=== PATIENT | female | born 1935 | race Caucasian/White ===

== ENCOUNTER 2017-02-04 23:32 | Inpatient (IN) | payer MEDICARE, OTHER ==
[~2017-02-04] VITALS: Ht 165.1 cm; Wt 90.6 kg
[~2017-02-04 23:32] MED LIST: B COTAB3 PO; CETI10 PO; FISHCAP; FLON0.053; LEXA20TA PO; MONT10TA2 PO; MULT1TAB46 PO; PRAV40TA2 PO; RAMI2.5C29 PO; SYNT125T PO; TRIA0.02 TOP
[2017-02-04 23:36] VITALS: BP 160/70; PULSE 80; RESP 18; TEMP 98.2; O2SAT 100
[2017-02-05] VITALS (14 sets, daily range): BP systolic 141–170; BP diastolic 62–86; PULSE 70–90; RESP 20–32; TEMP 98.2–99.3; O2SAT 93–100
--- NOTE | 2017-02-05 00:41 | PD ---
HPI Chief Complaint: Back/ Neck Pain or Injury Time Seen by Provider: 23:39 Travel History International Travel<30 days: No Contact w/Intl Traveler<30days: No Traveled to known affect area: No History of Present Illness HPI The patient is an 82 year old female who presents to the [facility] emergency department with a history of reportedly tripped and in falling at home earlier in the day. The patient reports that she hit her head on a metal cabinet. The patient was brought in to [facility] emergency department and underwent a workup. The patient was noted on imaging to have nasal bone fractures and a C3 fracture. That facility had no neurosurgeon on-call, therefore they called this facility and were accepted in transfer by the neurosurgeon on-call, Dr. Bernard. The patient on arrival is confused. From reviewing the record she does have a history of dementia. She is oriented to person and situation, however not time or place. The patient believes that she is in [place]. The patient denies having any numbness or tingling to her arms or legs. She denies having any weakness of her arms or legs. She denies having any other extremity pain currently, however she was having some pain along the right anterior knee which was imaged prior to arrival and showed no acute bony abnormality. The patient denies any recent fevers, cough, congestion , chest pain, shortness of breath, abdominal pain, vomiting, diarrhea, urinary symptoms, or other neurologic symptoms. [facility] Past Medical History Narrative Medical The patient's past medical history is significant for allergic rhinitis, arthritis, history of breast cancer, history of diabetes mellitus, history of hyperlipidemia, hypertension, dementia, hypothyroid disorder. Depression: Yes High Cholesterol: Yes Diabetes: No Hypertension: Yes Immunizations Current: No Thyroid Disease: Yes Tetanus Vaccination: Unknown Influenza Vaccination: No ?: Not Tubal Ligation: Yes Past Surgical History Narrative Surgical The patient's past surgical history is significant for arthroscopy of the knee, carpal tunnel release, cervical spine fusion, discectomy, bilateral knee replacement, splenectomy, partial thyroidectomy Abdominal Surgery: Yes (SPLEEN REMOVED) Neurologic Surgery: Yes (BACK DISC) Other Surgery: Yes (CALCIUM NODES OFF THYROID, LUMPECTOMY LEFT BREAST) Social History Alcohol Use: No Tobacco Use: No Substance Use: No Allergies-Medications (Allergen,Severity, Reaction): Coded Allergies: No Known Allergies (Unverified , 02/04/17) Reported Meds & Prescriptions Reported Meds & Active Scripts Active Reported Fish Oil ([place]-3 Fatty Acids) Cap B Complex (Vitamin B Complex) Tab 1 Cap PO DAILY Multi Vitamin Daily (Multiple Vitamin) 1 Tab Tab PO Flonase (Fluticasone Propionate) 0.05 % Naspr 2 Spr NA DAILY 2 SPRAYS EACH NOSTRIL Singulair (Montelukast Sodium) 10 Mg Tab 10 Mg PO HS Pravastatin Sodium 40 Mg Tab 1 Tab PO DAILY Ramipril 2.5 mg (Ramipril) 2.5 Mg Cap 2.5 Mg PO DAILY Lexapro (Escitalopram Oxalate) 20 Mg Tab 20 Mg PO DAILY Synthroid 125 mcg (Levothyroxine Sodium) 125 Mcg Tab 1 Tab PO DAILY Zyrtec 10 Mg Tab (Cetirizine HCl) 10 Mg Tab 10 Mg PO DAILY Review of Systems Except as stated in HPI: all other systems reviewed are Neg General / Constitutional: No: Fever Eyes: No: Visual changes HENT: Positive: Headaches, Nosebleed, Neck Stiffness, Neck Pain Cardiovascular: No: Chest Pain or Discomfort Respiratory: No: Shortness of Breath Gastrointestinal: No: Nausea, Vomiting, Diarrhea, Abdominal Pain Genitourinary: No: Dysuria Musculoskeletal: No: Pain Skin: No Rash Neurologic: Positive: Headache, No: Weakness, Focal Abnormalities, Change in Mentation, Slurred Speech, Sensory Disturbance Psychiatric: No: Depression Endocrine: No: Polydipsia Hematologic/Lymphatic: No: Easy Bruising Physical Exam Narrative General: The patient is a well-developed well-nourished female in no acute distress. The patient is brought in with a [place] collar in place. Head and Neck exam: Head is normocephalic atraumatic. The patient has tenderness on palpation of her nasal bridge associated with swelling and developing ecchymosis. There is no increased facial bone ability on palpation. No other crepitus or tenderness on palpation of her face. Eyes: EOMI, pupils are equal round and reactive to light. Nose: Midline septum with pink mucous membranes Mouth: Dentition unremarkable. Moist mucus membranes. Posterior oropharynx is not erythematous. No tonsillar hypertrophy. Uvula midline. Airway patent. Neck: The patient is immobilized in a cervical collar. No tracheal deviation. The trachea appears midline. Cardiovascular: Regular rate and rhythm without murmurs, gallops, or rubs. Lungs: Clear to auscultation bilaterally. No wheezes, rhonchi, or rales. No chest wall tenderness to palpation. No erythema or ecchymosis noted. No crepitus , step off, or flail segment noted. Abdomen: Soft, without tenderness to palpation in all 4 quadrants of the abdomen. No guarding, rebound, or rigidity. Normal bowel sounds are audible. Extremities: No clubbing, cyanosis, or edema. 2+ pulses in all 4 extremities. No extremity tenderness or deformity noted on palpation or passive/ active range of motion. The patient has anterior right knee ecchymosis developing, however no loss of range of motion or tenderness with palpation. Neurologic Exam: Cranial nerves 2-12 were intact on exam. Strength is 5/5 in all 4 extremities. No sensory deficits noted. Skin Exam: No rash noted. Data Data Last Documented VS Vital Signs Date Time Temp Pulse Resp B/P Pulse Ox O2 Delivery O2 Flow Rate FiO2 02/05/17 00:14 81 20 158/68 96 Room Air 02/04/17 23:36 98.2 Orders Iv Access Insert/Monitor (02/05/17 00:25) Oximetry (02/05/17 00:25) Ecg Monitoring (02/05/17 00:25) Urinary Catheter Insert/Apply (02/05/17 00:30) Apply Cervical Collar (02/05/17 00:30) Admit Order (Ed Use Only) (02/05/17 00:31) Consult Neurosurgery (02/05/17 ) MDM Medical Decision Making Medical Screen Exam Complete: Yes Emergency Medical Condition: Yes Medical Record Reviewed: Yes Differential Diagnosis Cervical spine fracture, versus cord contusion, versus subluxation Narrative Course During the course of the patients emergency department visit, the patients history, examination, and differential diagnosis were reviewed with the patient. The patient had IV access obtained and blood work sent for analysis. The patient was placed on a data modeling specialist with oximetry and blood pressure monitoring. The trauma surgeon on-call was notified regarding this patient's case. He did agree to admit the patient for further evaluation and treatment at this time. I additionally notified Dr. Bernard, the neurosurgeon regarding this patient's arrival in the emergency department. I asked him if he wanted an urgent MRI done this evening, however he reports that this is not necessary. He recommended that the patient be maintained in a collar and admitted to the [facility]. The patient reports the need to urinate. The patient does not have a catheter in place. As the patient will not be able to be up and mobile at this point, the patient will have a [place] catheter placed to gravity. The patients laboratory studies were reviewed from the other facility and are remarkable for a white count of 14.2, hemoglobin 11.1, platelets 293 with 81 neutrophils, lymphocytes 9.2, PT 12.9, INR 1.0, PTT 29.0. Basic metabolic profile is remarkable for sodium of 138, potassium 4.7, chloride 99, CO2 22, glucose 176, BUN 24, creatinine 1.24, magnesium 1.6, CPK 154, troponin T less than 0.01. Radiology studies were reviewed from the other facility and remarkable for a chest x-ray that shows no acute abnormality. CT scan of the facial bones shows a nondisplaced bilateral nasal bone fracture, soft tissue contusion and laceration involving the upper lip. CT scan of the C-spine shows a nondisplaced obliquely oriented fracture through the anterior aspect of the C3 vertebral body, multilevel degenerative osteochondrosis facet arthropathy of the cervical spine without evidence of high-grade central canal or neural foraminal stenosis. CT scan of the thorax shows no acute abnormality. The patients results were discussed with the patient, including the plan of care. I explained that further testing and/ or monitoring is indicated based on the patients history, examination, and/ or laboratory findings. Therefore, I recommended admission for additional evaluation. The patient expressed understanding and was agreeable with this plan. The patient was admitted to the hospital in guarded condition and sent to a bed under the care of the trauma service with a consultation to Dr. Bernard of the neurosurgeon. Diagnosis Primary Impression: Fall Qualified Code: W19.XXXA - Fall, initial encounter Additional Impressions: Closed C3 fracture Qualified Code: S12.201A - Closed nondisplaced fracture of third cervical vertebra, unspecified fracture morphology, initial encounter Nasal bone fracture Qualified Code: S02.2XXA - Closed fracture of nasal bone, initial encounter Admitting Information Admitting Physician Requests: Admit Jennifer Cook MD February 05, 2017 00:41
--- NOTE | 2017-02-05 00:43 | HHI.HP ---
General Surgery H&P H&P [facility] [id number] Scott Cash MD February 05, 2017 00:43
[2017-02-05] MEDS ORDERED: SODIUM CHLORIDE 0.9% FLUSH 10 ML FLUSH IV FLUSH PRN (00:45)
[2017-02-05] MEDS ORDERED: HYDROmorphone HCL PF 1 MG/ML VIAL IVP PRN (00:45)
[2017-02-05] MEDS ORDERED: ONDANSETRON HCL 4 MG/2 ML VIAL IV PRN (00:45)
[2017-02-05] MEDS ORDERED: ACETAMINOPHEN 325 MG TAB PO PRN (00:45)
[2017-02-05] MEDS ORDERED: CHLORHEXIDINE GLUCONATE 2 % 1 PACK (2 CLOTHS) TOP PRN (00:45)
[2017-02-05] MEDS ORDERED: PANTOPRAZOLE SODIUM 40 MG VIAL IVP SCH (00:45)
[2017-02-05] MEDS ORDERED: MAGNESIUM HYDROXIDE SUSP 30 ML CUP PO PRN (00:45)
[2017-02-05] MEDS ORDERED: ENALAPRILAT 1.25 MG/ML VIAL IV PRN (00:45)
[2017-02-05] MEDS ORDERED: MISCELLANEOUS NURSING INFORMATION XX SCH (00:45)
[2017-02-05] MEDS: SODIUM CHLOR 0.9% 1000 ML INJ 1,000 ML IV SCH ×2 (02:21→14:51)
--- NOTE | 2017-02-05 02:25 | PD.CONS ---
[facility] Service Critical Care Medicine Consult Requested By Primary Care Physician Unknown History of Present Illness 82 year old female presents to the [facility] emergency department with a history of reportedly tripped and in falling at home earlier in the day. The patient reports that she hit her head on a metal cabinet. She was brought in to [facility] emergency department and underwent a workup. She was noted on a CAT scan imaging to have nasal bone fractures and a C3 nondisplaced fracture. She was transferred here for a high level of care. Review of Systems Constitutional: DENIES: Diaphoretic episodes, Fatigue, Fever, Weight gain, Weight loss, Chills, Dizziness, Change in appetite, Night Sweats Endocrine: DENIES: Abnorml menstrual pattern, Heat/cold intolerance, Polydipsia , Polyuria, Polyphagia Eyes: DENIES: Blurred vision, Diplopia, Eye inflammation, Eye pain, Vision loss , Photosensitivity, Double Vision Ears, nose, mouth, throat: DENIES: Tinnitus, Hearing loss, Vertigo, Nasal discharge, Oral lesions, Throat pain, Hoarseness, Ear Pain, Running Nose, Epistaxis, Sinus Pain, Toothache, Odynophagia Respiratory: DENIES: Apneas, Cough, Snoring, Wheezing, Hemoptysis, Sputum production, Shortness of breath Cardiovascular: DENIES: Chest pain, Palpitations, Syncope, Dyspnea on Exertion , PND, Lower Extremity Edema, Orthopnea, Claudication Gastrointestinal: DENIES: Abdominal pain, Black stools, Bloody stools, Constipation, Diarrhea, Nausea, Vomiting, Difficulty Swallowing, Anorexia Genitourinary: DENIES: Abnormal vaginal bleeding, Dysmenorrhea, Dyspareunia, Sexual dysfunction, Urinary frequency, Urinary incontinence, Urgency, Hematuria , Dysuria, Nocturia, Vaginal discharge Musculoskeletal: DENIES: Joint pain, Muscle aches, Stiffness, Joint Swelling, Back pain, Neck pain Integumentary: DENIES: Abnormal pigmentation, Pruritus, Rash, Nail changes, Breast masses, Breast skin changes, Nipple discharge Hematologic/lymphatic: DENIES: Bruising, Lymphadenopathy Immunologic/allergic: DENIES: Eczema, Urticaria Neurologic: DENIES: Abnormal gait, Headache, Localized weakness, Paresthesias, Seizures, Speech Problems, Tremor, Poor Balance Psychiatric: DENIES: Anxiety, Confusion, Mood changes, Depression, Hallucinations, Agitation, Suicidal Ideation, Homicidal Ideation, Delusions Past Family Social History Allergies: Coded Allergies: No Known Allergies (Unverified , 02/04/17) Past Medical History Allergic rhinitis Arthritis Breast cancer in remission Diabetes mellitus Dyslipidemia Hypertension Mild dementia Hypothyroid Past Surgical History Tubal ligation Splenectomy Spinal disc surgery Breast cancer lumpectomy Thyroid nodules Reported Medications Reported Meds & Active Scripts Active Reported Fish Oil ([place]-3 Fatty Acids) Cap B Complex (Vitamin B Complex) Tab 1 Cap PO DAILY Multi Vitamin Daily (Multiple Vitamin) 1 Tab Tab PO Flonase (Fluticasone Propionate) 0.05 % Naspr 2 Spr NA DAILY 2 SPRAYS EACH NOSTRIL Singulair (Montelukast Sodium) 10 Mg Tab 10 Mg PO HS Pravastatin Sodium 40 Mg Tab 1 Tab PO DAILY Ramipril 2.5 mg (Ramipril) 2.5 Mg Cap 2.5 Mg PO DAILY Lexapro (Escitalopram Oxalate) 20 Mg Tab 20 Mg PO DAILY Synthroid 125 mcg (Levothyroxine Sodium) 125 Mcg Tab 1 Tab PO DAILY Zyrtec 10 Mg Tab (Cetirizine HCl) 10 Mg Tab 10 Mg PO DAILY Active Ordered Medications Current Medications Medications (Trade) Dose Ordered Sig/Rachel Route PRN Reason Start Time Stop Time Status Last Admin Dose Admin Sodium Chloride (NS 1000 ml Inj) 1,000 ml @ 83 mls/hr Q12H3M IV 02/05/17 00:43 Sodium Chloride (NS Flush) 2 ml UNSCH PRN IV FLUSH FLUSH AFTER USING IV ACCESS 02/05/17 00:45 Hydromorphone HCl (Dilaudid Pf Inj) 0.5 mg Q1H PRN IVP BREAKTHROUGH PAIN 02/05/17 00:45 Acetaminophen/ Hydrocodone Bitart ([place] 5-325 Mg) 1 tab Q4H PRN PO PAIN SCALE 1 TO 5 02/05/17 00:45 Acetaminophen (Tylenol) 650 mg Q6H PRN PO TEMPERATURE > 102 F 02/05/17 00:45 Enalaprilat (Vasotec Inj) 1.25 mg Q8H PRN IV SBP>180, DBP>95 02/05/17 00:45 Ondansetron HCl (Zofran Inj) 4 mg Q6H PRN IV NAUSEA OR VOMITING 02/05/17 00:45 Pantoprazole Sodium (Protonix Inj) 40 mg Q24H IVP 02/05/17 00:45 Docusate Sodium (Colace) 100 mg BID PO 02/05/17 09:00 Magnesium Hydroxide (Milk Of Elizabeth Keller) 30 ml Q6H PRN PO CONSTIPATION 02/05/17 00:45 Miscellaneous Information 1 Q361D XX 02/05/17 00:45 Chlorhexidine Gluconate (Chlorhexidine 2% Cloth) 3 pack Taper DAILY@04 TOP 02/05/17 04:00 02/01/18 03:59 Chlorhexidine Gluconate (Chlorhexidine 2% Cloth) 3 pack UNSCH PRN TOP HYGIENIC CARE 02/05/17 00:45 Cetirizine HCl (ZyrTEC) 10 mg DAILY PO 02/05/17 09:00 Escitalopram Oxalate (Lexapro) 20 mg DAILY PO 02/05/17 09:00 Fluticasone Propionate (Flonase Enrique Spr) 2 spray DAILY EACH NARE 02/05/17 09:00 Montelukast Sodium (Singulair) 10 mg HS PO 02/05/17 21:00 Pravastatin Sodium (Pravachol) 40 mg DAILY PO 02/05/17 09:00 Ramipril (Altace) 2.5 mg DAILY PO 02/05/17 09:00 Levothyroxine Sodium (Synthroid) 125 mcg DAILY@07 PO 02/05/17 07:00 Vitamin B Complex/ Vitamin C ([place] C) 1 tab DAILY PO 02/05/17 09:00 Folic Acid (Folate) 1 mg DAILY PO 02/05/17 09:00 Social History Negative 3 Physical Exam Vital Signs Vital Signs Date Time Temp Pulse Resp B/P Pulse Ox O2 Delivery O2 Flow Rate FiO2 02/05/17 01:07 98 Room Air 02/05/17 00:14 81 20 158/68 96 Room Air 02/04/17 23:36 98.2 80 18 160/70 100 Physical Exam GENERAL: Well-nourished, well-developed patient. SKIN: Warm and dry. HEAD: Normocephalic. EYES: No scleral icterus. No injection or drainage. NECK: [place] c-collar in place CARDIOVASCULAR: Regular rate and rhythm without murmurs, gallops, or rubs. RESPIRATORY: Breath sounds equal bilaterally. No accessory muscle use. GASTROINTESTINAL: Abdomen soft, non-tender, nondistended. MUSCULOSKELETAL: No cyanosis, or edema. BACK: Nontender without obvious deformity. No CVA tenderness. EXTREMITIES: Moves all 4. No clubbing cyanosis or edema Assessment and Plan Assessment and Plan C3 fracture - Nondisplaced - [place] collar - Management per neurosurgeon Nasal bone fracture - OMFS consult Hypothyroidism - Synthroid Hypertension - Ramipril - And other home meds Allergic rhinitis - Flonase Diabetes - Insulin sliding scale DVT GI prophylaxis - Teds SCDs - Pharmacological DVT prophylaxis trauma surgeon - [place] Critical Care: The total critical care time was 35 minutes. Time to perform other separately billable procedures was not included in the critical care time. Jb Burroughs MD February 05, 2017 02:25
[2017-02-05] MEDS: ACETAMINOPHEN/HYDROcodone 325 MG/5 MG TAB PO PRN ×2 (03:45→23:10)
[2017-02-05] MEDS: CHLORHEXIDINE GLUCONATE 2 % 1 PACK (2 CLOTHS) TOP SCH (03:45)
--- NOTE | 2017-02-05 05:21 | MH ---
cc: SCOTT CASH MD DATE OF ADMISSION: 02/05/2017 CHIEF COMPLAINT "My neck hurts." HISTORY OF PRESENT ILLNESS Requested to see this very pleasant 81-year-old female with a C3 fracture. The patient had a fall tonight, was seen at [facility] and transferred over. She had a single episode of losing balance and had syncope, has also hit the right side of her face, both shoulders hurt, her neck was sore and her right knee was sore. She had no loss of consciousness, arrived hemodynamically stable. PAST MEDICAL HISTORY Significant for - 1. Bilateral knee replacements. 2. Diabetes. 3. Osteoarthritis. 4. Hypertension. 5. Hypothyroidism. 6. Hypercholesterolemia. 7. History of thyroidectomy. 8. Splenectomy. 9. Breast cancer. 10. Allergic rhinitis. 11. History of cervical fusion. 12. History of dementia. MEDICATIONS Please see list. SOCIAL HISTORY Denies tobacco or ETOH. FAMILY HISTORY Non-contributory. REVIEW OF SYSTEMS Negative unless stated positive in the History of Present Illness. PHYSICAL EXAMINATION VITAL SIGNS: Stable. HEAD, EYES, EARS, NOSE, AND THROAT: Normal. NECK: Cervical collar in placed with C-spine tenderness. CHEST: Clear. CARDIOVASCULAR: Regular rhythm, without murmur. ABDOMEN: Positive bowel sounds, soft. GENITOURINARY: Without discharge. EXTREMITIES: Without effusion. Bilateral healed anterior incisions noted over both knees. NEUROLOGIC: Grossly intact. PSYCHIATRIC: Patient pleasantly confused. IMAGING STUDIES CT scan shows nondisplaced fracture of C3 vertebral body, also she has bilateral nasal bone fractures that are nondisplaced. IMPRESSION 1. Nondisplaced C3 vertebral body fracture. 2. Nasal bone fracture. 3. Diabetes. 4. Osteoarthritis. 5. Hypertension. PLAN 1. Admit. 2. We will get Neurosurgery consult. 3. We will place in ICU. 4. We will get neuro checks. 5. We will follow up in the a.m. 6. We will get lab. Scott Cash M.D. BRITTANY/PIPPA /12:40 AM /5:11 AM [facility] SYSTEMJulissa
[2017-02-05] MEDS: LEVOTHYROXINE SODIUM 125 MCG TAB PO SCH (06:52)
[2017-02-05] MEDS: PRAVASTATIN SOD 40 MG TAB PO SCH (08:24)
[2017-02-05] MEDS: FOLIC ACID 1 MG TAB PO SCH (08:24)
[2017-02-05] MEDS: CETIRIZINE HCL 10 MG TAB PO SCH (08:24)
[2017-02-05] MEDS: ESCITALOPRAM OXALATE 20 MG TAB PO SCH (08:25)
[2017-02-05] MEDS: DOCUSATE SODIUM 100 MG CAP PO SCH ×2 (08:25→20:20)
[2017-02-05] MEDS: FLUTICASONE PROPIONATE 50 MCG/ACT 16 GM NASAL SPRAY EACH NARE SCH (08:25)
[2017-02-05 09:11] LABS: AUTOMATED NEUTROPHIL # 4.8 TH/MM3 (1.8-7.7); BASOPHIL % 0.5 % (0.0-2.0); EOSINOPHIL # 0.3 TH/MM3 (0-0.4); EOSINOPHIL % 3.8 % (0.0-4.0); HEMATOCRIT 32.4 % (35.0-46.0); HEMO FLAGS DIFF FINAL; LYMPH % 25.2 % (9.0-44.0); LYMPHOCYTE # 2.1 TH/MM3 (1.0-4.8); MEAN CELL VOLUME 92.4 FL (80.0-100.0); MEAN CORPUSCULAR HGB CONC 33.5 % (32.0-36.0); MONO % 13.8 % (0.0-8.0); NEUT % 56.7 % (16.0-70.0); PLATELET COUNT 252 TH/MM3 (150-450); RED CELL DISTRIBUTION WIDTH 13.8 % (11.6-17.2); WHITE BLOOD COUNT 8.5 TH/MM3 (4.0-11.0)
[2017-02-05 09:30] LABS: ANION GAP 8 MEQ/L (5-15); AST (GOT) 23 U/L (15-37); BICARBONATE 25.7 MEQ/L (21.0-32.0); BLOOD UREA NITROGEN 18 MG/DL (7-18); CHLORIDE 106 MEQ/L (98-107); GLOMERULAR FILTRATION RATE 43 ML/MIN (>89); POTASSIUM 4.2 MEQ/L (3.5-5.1); SODIUM (NA) 140 MEQ/L (136-145)
[2017-02-05 09:33] LABS: ALKALINE PHOSPHATASE 35 U/L (45-117); ALT (GPT) 19 U/L (10-53); TOTAL BILIRUBIN ADULT 0.4 MG/DL (0.2-1.0)
--- NOTE | 2017-02-05 09:55 | RADRPT ---
EXAM DATE/TIME: 02/05/2017 09:02 [place] COMPARISON: CHEST SINGLE AP, August 31, 2014, 16:18. INDICATIONS : Patient is short of breath. MEDICAL HISTORY : unobtainable. SURGICAL HISTORY : unobtainable. ENCOUNTER: Subsequent ACUITY: 2 days PAIN SCORE: 0/10 LOCATION: Bilateral chest FINDINGS: The examination demonstrates moderate COPD changes. The heart is mildly enlarged. The visualized bony structures demonstrate degenerative changes but are otherwise intact. CONCLUSION: 1. COPD changes. No acute abnormality. Nnamdi Jones MD on February 05, 2017 at 9:53 Board Certified Radiologist. This report was verified electronically.
--- NOTE | 2017-02-05 10:07 | HHI.CCPN ---
Subjective Brief History HISTORY OF PRESENT ILLNESS Requested to see this very pleasant 81-year-old female with a C3 fracture. The patient had a fall tonight, was seen at [facility] and transferred over to us. She had a single episode of losing balance and had syncope, has also hit the right side of her face, both shoulders hurt, her neck was sore and her right knee was sore. She had no loss of consciousness, arrived hemodynamically stable. Patient is diagnosed with bruises from the fall as well as nondisplaced flecture of C3 and patient has a c-collar in place PAST MEDICAL HISTORY Significant for - 1. Bilateral knee replacements. 2. Diabetes. 3. Osteoarthritis. 4. Hypertension. 5. Hypothyroidism. 6. Hypercholesterolemia. 7. History of thyroidectomy. 8. Splenectomy. 9. Breast cancer. 10. Allergic rhinitis. 11. History of cervical fusion. 12. History of dementia. 24 Hour Review/Hospital Course Patient has been stable over the last 24 hours She is awake but disoriented and demented C-collar is in place and patient is grossly neurologically intact Will transfer patient to floor today and transfer to half-way when okay with neurosurgery Objective Vital Signs Date Time Temp Pulse Resp B/P Pulse Ox O2 Delivery O2 Flow Rate FiO2 02/05/17 06:00 75 02/05/17 04:00 24 170/73 98 02/05/17 02:00 98.2 02/05/17 02:00 Room Air Result Diagram: 02/05/17 0851 02/05/17 0851 Imaging Last 24 hours Impressions Chest X-Ray 02/05/17 0000 Signed Impressions: Service Date/Time: Sunday, February 05, 2017 09:02 - CONCLUSION: 1. COPD changes. No acute abnormality. Nnamdi Jones MD Exam ASH WORKER No neurologic deficits patient is demented and disoriented but pleasant Hemodynamic/Cardiac Hemodynamically intact Pulmonary/Respiratory Bilateral breath sounds decreased over the both lung walker consistent with senile emphysema Abdomen/GI Nutrition Abdomen soft active bowel sounds Assessment and Plan Attestation The exam, history, and the medical decision-making described in the above note were completed with the assistance of the mid-level provider. I reviewed and agree with the findings presented. I attest that I had a [id number] encounter with the patient on the same day, and personally performed and documented my assessment and findings in the medical record. Critical care time 35 minutes. Kasia Ratliff MD February 05, 2017 10:06
[2017-02-05] MEDS: RAMIPRIL 2.5 MG CAP PO SCH (10:25)
[2017-02-05] MEDS: VITAMIN B COMPLEX/VIT C TAB PO SCH (10:25)
[2017-02-05] MEDS: POLYETHYLENE GLYCOL 17 GM PKG PO SCH (10:48)
--- NOTE | 2017-02-05 13:30 | MB ---
cc: SALINAS FRAZIER MD, ROHIT K. M.D. DATE OF CONSULTATION 02/05/2017 REASON FOR CONSULTATION C3 vertebral body fracture. PRESENT ILLNESS An 82-year-old female who reportedly tripped and fell at home yesterday and hit her head on a metal cabinet with a questionable loss of consciousness. She was taken to [facility] in [place] emergency room and underwent a workup including a CT scan of the head which did not reveal any intracranial abnormality. She was found to have a nasal bone fracture and a CT of the cervical spine revealed a C3 sagittal plane anterior vertebral body fracture without any retropulsion or any of facet fractures. She has history of C5-C6 interbody noninstrumented fusion as well as advanced C6-7 degenerative disc disease with discoid collapse. She was placed in a collar and transferred to [facility] for further management of her traumatic injuries. She has a history of dementia and is confused as to her orientation but does not complained of any significant neck pain or relate any history of a stroke in the past. PAST MEDICAL HISTORY 1. Dementia. 2. Diabetes mellitus. 3. Hyperlipidemia. 4. Hypertension. 5. Hypothyroidism. 6. Allergic rhinitis. 7. Breast cancer. 8. Anterior cervical C5-C6 fusion. 9. Breast lumpectomy. 10. Resection of thyroid nodules. 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 12. Tubal ligation. MEDICATIONS 1. Zyrtec 10 mg daily. 2. Lexapro 20 mg daily. 3. Flonase two sprays daily. 4. Synthroid 125 mcg daily. 5. Singulair 10 mg q.h.s. 6. Multivitamin one daily. 7. Fish oil daily. 8. Pravastatin 40 mg daily. 9. Ramipril 2.5 mg daily. 10. Vitamin B complex one daily. ALLERGIES No known drug allergies. SOCIAL HISTORY She is . Denies alcohol or tobacco use. LABORATORY FINDINGS Sodium 140, potassium 4.2, BUN 18, creatinine 2, glucose 137. White blood cell count 8.5, hemoglobin 10.9, platelet count 252. REVIEW OF SYSTEMS Complains of mild headache. Denies much of a neck pain, in a collar. Denies any chest pain or shortness of breath. Denies any abdominal pain. Denies any numbness or paresthesias in the upper or lower extremities. No fevers or chills. No recent weight gain or weight loss. No history of easy bleeding or bruising. No double vision or blurred vision. PHYSICAL EXAMINATION VITAL SIGNS: Temperature 98.5, pulse is 73, respiratory is 24, blood pressure 146/69, oxygen saturation 98% on room air. HEAD: She has a right-sided facial swelling and ecchymosis. NECK: Maintained in a Spivey collar. CHEST: Clear to incision bilaterally. HEART: Regular rate and rhythm. Normal S1 and S2. ABDOMEN: Soft, nontender. Positive bowel sounds. EXTREMITIES: No cyanosis or any deformity or edema. NEUROLOGIC: She is awake, alert. She is oriented to name but not the location or date. Pupils are equal, reactive. Extraocular muscles intact. Face shows right facial swelling with slight asymmetry due to that. The tongue is midline. She moves all four extremities, although does have weakness in the left deltoid around 3/5, which she is not sure whether this is chronic or new and mild weakness of the left lower extremity 4/5. She has positive Babinski bilaterally. Appreciates light touch sensation bilaterally. She has good strength in the right arm and leg. Speech is fluent. IMPRESSION 1. C3 vertebral body fracture which is oriented in the coronal plane and extends into the inferior aspect of the body without any retropulsion or displacement. 2. Left hemiparesis more involving the deltoid proximally in the arm. Questionable whether this is related to a TIA or stroke, either recent or remote or any cervical stenosis. 3. Hypertension which is well regulated. 4. Diabetes mellitus. 5. Nasal bone fracture. PLAN 1. The patient will be monitored closely in the surgical intensive care unit. 2. Her neck will be maintained in a hard cervical collar for the C3 fracture. 3. We will also obtain an MRI scan of the brain and cervical spine to further assess whether neurologic deficit is noted. 4. Encourage increasing activity with physical and occupational therapy involvement. 5. DVT prophylaxis along with gastrointestinal stress ulcer prophylaxis. MD HECTOR Fields/PIPPA /12:52 PM /1:17 PM
--- NOTE | 2017-02-05 15:10 | RADRPT ---
EXAM DATE/TIME: 02/05/2017 14:12 [facility] COMPARISON: MRI BRAIN W/O CONTRAST, September 01, 2014, 8:54. INDICATIONS : Left sided weakness. MEDICAL HISTORY : Carcinoma, breast. Hypertension. Diabetes mellitus type 2. SURGICAL HISTORY : Fusion, cervical. Total knee replacement, right. Total knee replacement, left. ENCOUNTER: Initial ACUITY: 2 day PAIN SCORE: 0/10 LOCATION: head TECHNIQUE: Multiplanar, multisequence MRI of the brain was performed without contrast. FINDINGS: CEREBRUM: The ventricles are normal for age. There is mild cortical atrophy. No evidence of midline shift, mass lesion, hemorrhage or acute infarction. No extraaxial fluid collections are seen. The pituitary gl and and suprasellar cistern are normal in configuration. WHITE MATTER: There are scattered areas of increased T2 signal in the white matter most consistent with mild microv ascular ischemic demyelinative change. No areas of significant abnormal signal are seen. POSTERIOR FOSSA: The cerebellum and brainstem are intact. The 4th ventricle is midline. The cerebellopontine angle is unremarkable. The cerebellar tonsils are normal in position. DIFFUSION IMAGING: No focal areas of restricted diffusion are seen. No evidence of acute infarction. EXTRACRANIAL: The visualized portions of the orbits and paranasal sinuses are unremarkable. CONCLUSION: 1. Cortical atrophy and microvascular ischemic demyelinative change. Stable compared to previous exam . Nnamdi Jones MD on February 05, 2017 at 15:07 Board Certified Radiologist. This report was verified electronically.
--- NOTE | 2017-02-05 16:21 | RADRPT ---
EXAM DATE/TIME: 02/05/2017 14:12 [facility] COMPARISON: No previous studies available for comparison. INDICATIONS : Trauma. C3 fracture. MEDICAL HISTORY : Carcinoma, breast. Diabetes mellitus type 2. Hypertension. SURGICAL HISTORY : Fusion, cervical. Total knee replacement, right. Total knee replacement, left. ENCOUNTER: Initial ACUITY: 2 day PAIN SCORE: 2/10 LOCATION: neck TECHNIQUE: Multiplanar, multisequence MRI examination of the cervical spine was performed. FINDINGS: There is a fracture of anterior vertebral body of C3. C2-C3: There is no evidence for any significant compromise to the thecal sac, or the exiting nerve roots. N o appreciable thecal sac stenosis is seen. The neural foramina and lateral recess appear patent bila terally. C3-C4: There is no evidence for any significant compromise to the thecal sac, or the exiting nerve roots. N o appreciable thecal sac stenosis is seen. The neural foramina and lateral recess appear patent bila terally. C4-C5: There is no evidence for any significant compromise to the thecal sac, or the exiting nerve roots. N o appreciable thecal sac stenosis is seen. The neural foramina and lateral recess appear patent bila terally. C5-C6: There is anterior fusion at this level with hypertrophic changes. There is slight neural foramina com promise bilaterally due to bulging disc and hypertrophic changes. There is moderate overall thecal sa c stenosis with slight flattening of the spinal cord due to central disc/osteophyte complex and hyper trophic changes. C6-C7: Moderate degenarative changes are seen within the disc space and facets. There is anterior extradural impression and effacement of the anterior CSF space due to bulging disc and hypertrophic changes, ho wever overall no significant thecal sac stenosis is seen. C7-T1: There is no evidence for any significant compromise to the thecal sac, or the exiting nerve roots. N o appreciable thecal sac stenosis is seen. The neural foramina and lateral recess appear patent bila terally. CONCLUSION: 1. Fracture of anterior column C3 vertebrae. 2. Moderate thecal sac stenosis C5-6. 3. Neural foramina compromise bilaterally C5-6 with effacement of the anterior CSF space at C6-7 with out any cord compression. Justin Khan MD on February 05, 2017 at 16:13 Board Certified Radiologist. This report was verified electronically.
[2017-02-05] MEDS: MONTELUKAST SODIUM 10 MG TAB PO SCH (20:19)
[2017-02-06] VITALS (9 sets, daily range): BP systolic 115–177; BP diastolic 55–79; PULSE 75–89; RESP 16–25; TEMP 97.6–99.4; O2SAT 92–95
[2017-02-06] MEDS: SODIUM CHLOR 0.9% 1000 ML INJ 1,000 ML IV SCH ×2 (00:29→08:37)
[2017-02-06] MEDS: CHLORHEXIDINE GLUCONATE 2 % 1 PACK (2 CLOTHS) TOP SCH (04:00)
[2017-02-06 05:06] LABS: AUTOMATED NEUTROPHIL # 8.1 TH/MM3 (1.8-7.7); BASOPHIL % 0.3 % (0.0-2.0); EOSINOPHIL # 0.2 TH/MM3 (0-0.4); EOSINOPHIL % 2.1 % (0.0-4.0); HEMATOCRIT 32.9 % (35.0-46.0); HEMO FLAGS DIFF FINAL; LYMPH % 14.9 % (9.0-44.0); LYMPHOCYTE # 1.7 TH/MM3 (1.0-4.8); MEAN CELL VOLUME 91.9 FL (80.0-100.0); MEAN CORPUSCULAR HEMOGLOBIN 30.6 PG (27.0-34.0); MEAN CORPUSCULAR HGB CONC 33.3 % (32.0-36.0); MONO % 12.7 % (0.0-8.0); PLATELET COUNT 250 TH/MM3 (150-450); RED BLOOD COUNT 3.58 MIL/MM3 (4.00-5.30); RED CELL DISTRIBUTION WIDTH 13.9 % (11.6-17.2); WHITE BLOOD COUNT 11.6 TH/MM3 (4.0-11.0)
[2017-02-06 05:35] LABS: ALKALINE PHOSPHATASE 39 U/L (45-117); ALT (GPT) 19 U/L (10-53); ANION GAP 9 MEQ/L (5-15); AST (GOT) 23 U/L (15-37); BICARBONATE 26.5 MEQ/L (21.0-32.0); BLOOD UREA NITROGEN 14 MG/DL (7-18); CHLORIDE 104 MEQ/L (98-107); GLOMERULAR FILTRATION RATE 44 ML/MIN (>89); POTASSIUM 4.1 MEQ/L (3.5-5.1); SODIUM (NA) 139 MEQ/L (136-145); TOTAL BILIRUBIN ADULT 0.6 MG/DL (0.2-1.0)
--- NOTE | 2017-02-06 06:09 | RADRPT ---
EXAM DATE/TIME: 02/06/2017 05:32 [facility] COMPARISON: CHEST SINGLE AP, February 05, 2017, 9:02. INDICATIONS : Short of breath. MEDICAL HISTORY : Carcinoma, breast. Diabetes mellitus type II. Hypertension. SURGICAL HISTORY : Fusion, cervical. ENCOUNTER: Subsequent ACUITY: 2 days PAIN SCORE: Non-responsive. LOCATION: Bilateral chest FINDINGS: A single view of the chest demonstrates the lungs to be symmetrically aerated without evidence of mas s, infiltrate or effusion. Atherosclerotic calcifications are present in the aorta. There are multip le overlying electrocardiogram leads. The cardiomediastinal contours are unremarkable. Osseous struc tures are intact. CONCLUSION: No acute disease. Ervin Bradford MD on February 06, 2017 at 6:07 Board Certified Radiologist. This report was verified electronically.
[2017-02-06] MEDS: LEVOTHYROXINE SODIUM 125 MCG TAB PO SCH (06:17)
[2017-02-06] MEDS ORDERED: METF1000 PO (07:40)
[2017-02-06] MEDS ORDERED: NAME5TAB2 PO (07:40)
[2017-02-06] MEDS ORDERED: FOLI800T PO (07:40)
[2017-02-06] MEDS ORDERED: TAMO20TA6 PO (07:40)
[2017-02-06] MEDS ORDERED: DONE10TA7 PO (07:40)
[2017-02-06] MEDS: VITAMIN B COMPLEX/VIT C TAB PO SCH (08:32)
[2017-02-06] MEDS: ESCITALOPRAM OXALATE 20 MG TAB PO SCH (08:33)
[2017-02-06] MEDS: FOLIC ACID 1 MG TAB PO SCH (08:33)
[2017-02-06] MEDS: CETIRIZINE HCL 10 MG TAB PO SCH (08:33)
[2017-02-06] MEDS: DOCUSATE SODIUM 100 MG CAP PO SCH ×2 (08:33→20:15)
[2017-02-06] MEDS: PRAVASTATIN SOD 40 MG TAB PO SCH (08:33)
[2017-02-06] MEDS: RAMIPRIL 2.5 MG CAP PO SCH (08:33)
[2017-02-06] MEDS: POLYETHYLENE GLYCOL 17 GM PKG PO SCH (08:33)
[2017-02-06] MEDS: FLUTICASONE PROPIONATE 50 MCG/ACT 16 GM NASAL SPRAY EACH NARE SCH (08:36)
[2017-02-06] MEDS ORDERED: GLUCAGON 1 MG/ML VIAL OTHER PRN (09:30)
[2017-02-06] MEDS ORDERED: DEXTROSE 50% IN WATER 50 ML VIAL(D50) IV PUSH PRN (09:30)
--- NOTE | 2017-02-06 09:53 | HHI.NSPN ---
(Brandan Ochoa) History Chief Complaint: Soreness. (Brandan Ochoa) Interval History An 82-year-old female who reportedly tripped and fell at home yesterday and hit her head on a metal cabinet with a questionable loss of consciousness. She was taken to [facility] in [place] emergency room and underwent a workup including a CT scan of the head which did not reveal any intracranial abnormality. She was found to have a nasal bone fracture and a CT of the cervical spine revealed a C3 sagittal plane anterior vertebral body fracture without any retropulsion or any of facet fractures. She has history of C5-C6 interbody noninstrumented fusion as well as advanced C6-7 degenerative disc disease with discoid collapse. She was placed in a collar and transferred to [facility] for further management of her traumatic injuries. She has a history of dementia and is confused as to her orientation but does not complained of any significant neck pain or relate any history of a stroke in the past. 02/06/17: Pt awake and alert. Sitting up in chair. Denies neck pain. No radiculopathy in UEs. No paresthesias in UEs. Cervical collar intact. She has some soreness in LUE but not bad. (Brandan Ochoa) Review of Systems General: Negative for: fever, chills, insomnia Respiratory: Negative for: shortness of breath, cough, sputum Cardiovascular: Negative for: chest pain Gastrointestinal: Negative for: nausea, vomitting, diarrhea, constipation ( Brandan Ochoa) Exam Results Vital Signs Date Time Temp Pulse Resp B/P Pulse Ox O2 Delivery O2 Flow Rate FiO2 02/06/17 08:00 99.4 77 24 92 02/06/17 04:00 177/79 02/05/17 02:00 Room Air Intake and Output 02/05/17 02/05/17 02/06/17 08:00 16:00 00:00 Intake Total 353 ml 950 ml 406 ml Output Total 750 ml 1200 ml 240 ml Balance -397 ml -250 ml 166 ml (Brandan Ochoa) Physical Examination Resp: CTA bilaterally Heart: NSR no murmurs Abd: Soft positive bs Skin: right facial ecchymosis. Muscle: Moves all 4 extremities. Mild left hemiparesis. She has left EHL weakness 2/5 compared to the right. Hooker cervical collar in place. Neuro: Pt awake and alert. Sitting up in chair. follows commands well. speech clear and appropriate. (Brandan Ochoa) Lab, Micro, Other Results Last Impressions Chest X-Ray 02/06/17 0000 Signed Impressions: Service Date/Time: January 05:32 - CONCLUSION: No acute disease. Ervin Bradford MD Cervical Spine MRI 02/05/17 0000 Signed Impressions: Service Date/Time: Sunday, February 05, 2017 14:12 - CONCLUSION: 1. Fracture of anterior column C3 vertebrae. 2. Moderate thecal sac stenosis C5-6. 3. Neural foramina compromise bilaterally C5-6 with effacement of the anterior CSF space at C6-7 without any cord compression. Justin Khan MD Brain MRI 02/05/17 0000 Signed Impressions: Service Date/Time: Sunday, February 05, 2017 14:12 - CONCLUSION: 1. Cortical atrophy and microvascular ischemic demyelinative change. Stable compared to previous exam. Nnamdi Jones MD Laboratory Tests Test 02/06/17 04:42 White Blood Count 11.6 TH/MM3 Red Blood Count 3.58 MIL/MM3 Hemoglobin 11.0 GM/DL Hematocrit 32.9 % Mean Corpuscular Volume 91.9 FL Mean Corpuscular Hemoglobin 30.6 PG Mean Corpuscular Hemoglobin 33.3 % Concent Red Cell Distribution Width 13.9 % Platelet Count 250 TH/MM3 Mean Platelet Volume 8.9 FL Neutrophils (%) (Auto) 70.0 % Lymphocytes (%) (Auto) 14.9 % Monocytes (%) (Auto) 12.7 % Eosinophils (%) (Auto) 2.1 % Basophils (%) (Auto) 0.3 % Neutrophils # (Auto) 8.1 TH/MM3 Lymphocytes # (Auto) 1.7 TH/MM3 Monocytes # (Auto) 1.5 TH/MM3 Eosinophils # (Auto) 0.2 TH/MM3 Basophils # (Auto) 0.0 TH/MM3 CBC Comment DIFF FINAL Differential Comment Sodium Level 139 MEQ/L Potassium Level 4.1 MEQ/L Chloride Level 104 MEQ/L Carbon Dioxide Level 26.5 MEQ/L Anion Gap 9 MEQ/L Blood Urea Nitrogen 14 MG/DL Creatinine 1.17 MG/DL Estimat Glomerular Filtration 44 ML/MIN Rate Random Glucose 173 MG/DL Calcium Level 8.8 MG/DL Total Bilirubin 0.6 MG/DL Aspartate Amino Transf 23 U/L (AST/SGOT) Alanine Aminotransferase 19 U/L (ALT/SGPT) Alkaline Phosphatase 39 U/L Total Protein 6.6 GM/DL Albumin 3.0 GM/DL 02/05/17 02/05/17 02/06/17 15:00 23:00 07:00 Intake Total 950 ml 406 ml 480 ml Output Total 1200 ml 240 ml 1000 ml Balance -250 ml 166 ml -520 ml Intake Oral 300 ml 240 ml 480 ml IV Total 650 ml 166 ml 0 ml Output Urine Total 1200 ml 240 ml 1000 ml # Bowel Movements 0 0 0 (Brandan Ochoa) Medical Decision Making Impression and Plan A: 82 y/o FM C3 vertebral body fracture which is oriented in the coronal plane and extends into the inferior aspect of the body without any retropulsion or displacement. 2. Left hemiparesis more involving the deltoid proximally in the arm. Questionable whether this is related to a TIA or stroke, either recent or remote or any cervical stenosis. 3. Hypertension which is well regulated. 4. Diabetes mellitus. 5. Nasal bone fracture. PLAN Continue to monitor neuro exam. Cervical collar for the C3 fracture. Rehab efforts. (Brandan Ochoa) Attending Statement The exam, history, and the medical decision-making described in the above note were completed with the assistance of the mid-level provider. I reviewed and agree with the findings presented. I attest that I had a [id number] encounter with the patient on the same day, and personally performed and documented my assessment and findings in the medical record. MRI of the brain negative for anemia stroke and MRI of the cervical spine with some degenerative changes with stenosis but no cord compression noted. Continuing with cervical collar and rehabilitation. (Rusty Bernard MD) Brandan Ochoa February 06, 2017 09:53 Rusty Bernard MD February 06, 2017 18:42
[2017-02-06] MEDS ORDERED: POLY17S PO (09:56)
[2017-02-06] MEDS ORDERED: DOCU1CAP39 PO (09:56)
[2017-02-06] MEDS ORDERED: FOLI1TAB4 PO (09:56)
[2017-02-06] MEDS ORDERED: MILKSUS PO (09:56)
[2017-02-06] MEDS: MEMANTINE HCL 5 MG TAB PO SCH ×2 (10:10→20:15)
[2017-02-06] MEDS: INSULIN NovoLIN REGULAR SUPPLEMENTAL SCALE SQ SCH ×3 (10:46→20:19)
--- NOTE | 2017-02-06 11:28 | HHI.CCPN ---
Subjective Brief History HISTORY OF PRESENT ILLNESS Requested to see this very pleasant 81-year-old female with a C3 fracture. The patient had a fall tonight, was seen at [facility] and transferred over to us. She had a single episode of losing balance and had syncope, has also hit the right side of her face, both shoulders hurt, her neck was sore and her right knee was sore. She had no loss of consciousness, arrived hemodynamically stable. Patient is diagnosed with bruises from the fall as well as nondisplaced flecture of C3 and patient has a c-collar in place PAST MEDICAL HISTORY Significant for - 1. Bilateral knee replacements. 2. Diabetes. 3. Osteoarthritis. 4. Hypertension. 5. Hypothyroidism. 6. Hypercholesterolemia. 7. History of thyroidectomy. 8. Splenectomy. 9. Breast cancer. 10. Allergic rhinitis. 11. History of cervical fusion. 12. History of dementia. 24 Hour Review/Hospital Course Patient has been stable over the last 24 hours She is awake but disoriented and demented C-collar is in place and patient is grossly neurologically intact Will transfer patient to floor today and transfer to longterm when okay with neurosurgery 02/06/17 Patient doing well Does not report any neurologic deficit moves all 4 extremities Pleasantly demented tolerating diet well Agree with neurosurgery that patient should not have any operative procedure at this time and were making efforts to transfer patient to rehabilitation Patient was discharged from ICU yesterday but no beds were available on the floor Objective Vital Signs Date Time Temp Pulse Resp B/P Pulse Ox O2 Delivery O2 Flow Rate FiO2 02/06/17 10:00 87 02/06/17 08:00 99.4 24 92 02/06/17 04:00 177/79 02/05/17 02:00 Room Air Intake and Output 02/05/17 02/05/17 02/06/17 08:00 16:00 00:00 Intake Total 353 ml 950 ml 406 ml Output Total 750 ml 1200 ml 240 ml Balance -397 ml -250 ml 166 ml Result Diagram: 02/06/17 0442 02/06/17 0442 Imaging Last 24 hours Impressions Chest X-Ray 02/06/17 0000 Signed Impressions: Service Date/Time: January 05:32 - CONCLUSION: No acute disease. Ervin Bradford MD Exam MANAGER TARGET MRI of the C-spine and brain performed and chronic changes noted in both consistent with age and degenerative disease Hemodynamic/Cardiac Hemodynamically intact Pulmonary/Respiratory Bilateral breath sounds Renal/I&O Euvolemic Assessment and Plan Attestation Patient does not require ICU care anymore since yesterday and is awaiting placement to rehabilitation hopefully at [facility] The exam, history, and the medical decision-making described in the above note were completed with the assistance of the mid-level provider. I reviewed and agree with the findings presented. I attest that I had a [id number] encounter with the patient on the same day, and personally performed and documented my assessment and findings in the medical record. Kasia Ratliff MD February 06, 2017 11:28
[2017-02-06] MEDS ORDERED: PERC5TAB12 PO (14:37)
[2017-02-06] MEDS: MONTELUKAST SODIUM 10 MG TAB PO SCH (20:15)
[2017-02-06] MEDS ORDERED: DONEPEZIL HCL 5 MG TAB PO SCH (21:00)
[2017-02-07] VITALS: BP 135/64; PULSE 77; RESP 18; TEMP 97.3; O2SAT 93
[2017-02-07] MEDS: SODIUM CHLOR 0.9% 1000 ML INJ 1,000 ML IV SCH ×2 (00:55→12:58)
[2017-02-07 04:00] VITALS: BP 126/63; PULSE 82; RESP 17; TEMP 97.5; O2SAT 96
[2017-02-07] MEDS: CHLORHEXIDINE GLUCONATE 2 % 1 PACK (2 CLOTHS) TOP SCH (04:00)
[2017-02-07 05:10] LABS: AUTOMATED NEUTROPHIL # 7.3 TH/MM3 (1.8-7.7); BASOPHIL % 0.3 % (0.0-2.0); EOSINOPHIL # 0.2 TH/MM3 (0-0.4); EOSINOPHIL % 1.9 % (0.0-4.0); HEMATOCRIT 31.3 % (35.0-46.0); HEMO FLAGS DIFF FINAL; LYMPH % 15.9 % (9.0-44.0); LYMPHOCYTE # 1.7 TH/MM3 (1.0-4.8); MEAN CELL VOLUME 91.9 FL (80.0-100.0); MEAN CORPUSCULAR HEMOGLOBIN 30.8 PG (27.0-34.0); MEAN CORPUSCULAR HGB CONC 33.6 % (32.0-36.0); NEUT % 68.9 % (16.0-70.0); PLATELET COUNT 232 TH/MM3 (150-450); RED BLOOD COUNT 3.41 MIL/MM3 (4.00-5.30); RED CELL DISTRIBUTION WIDTH 13.9 % (11.6-17.2); WHITE BLOOD COUNT 10.5 TH/MM3 (4.0-11.0)
[2017-02-07 05:27] LABS: ALT (GPT) 21 U/L (10-53); ANION GAP 8 MEQ/L (5-15); AST (GOT) 25 U/L (15-37); BICARBONATE 24.6 MEQ/L (21.0-32.0); BLOOD UREA NITROGEN 16 MG/DL (7-18); CHLORIDE 109 MEQ/L (98-107); GLOMERULAR FILTRATION RATE 46 ML/MIN (>89); MAGNESIUM 1.7 MG/DL (1.5-2.5); POTASSIUM 4.1 MEQ/L (3.5-5.1); SODIUM (NA) 142 MEQ/L (136-145)
[2017-02-07 05:30] LABS: ALKALINE PHOSPHATASE 38 U/L (45-117); TOTAL BILIRUBIN ADULT 0.5 MG/DL (0.2-1.0)
[2017-02-07] MEDS: INSULIN NovoLIN REGULAR SUPPLEMENTAL SCALE SQ SCH ×2 (06:08→11:00)
[2017-02-07] MEDS: LEVOTHYROXINE SODIUM 125 MCG TAB PO SCH (06:12)
[2017-02-07 08:00] VITALS: BP 132/63; PULSE 78; RESP 28; TEMP 98.2; O2SAT 93
[2017-02-07] MEDS: POLYETHYLENE GLYCOL 17 GM PKG PO SCH (10:50)
[2017-02-07] MEDS: VITAMIN B COMPLEX/VIT C TAB PO SCH (10:50)
[2017-02-07] MEDS: FOLIC ACID 1 MG TAB PO SCH (10:50)
[2017-02-07] MEDS: RAMIPRIL 2.5 MG CAP PO SCH (10:50)
[2017-02-07] MEDS: DOCUSATE SODIUM 100 MG CAP PO SCH (10:50)
[2017-02-07] MEDS: ESCITALOPRAM OXALATE 20 MG TAB PO SCH (10:51)
[2017-02-07] MEDS: CETIRIZINE HCL 10 MG TAB PO SCH (10:51)
[2017-02-07] MEDS: MEMANTINE HCL 5 MG TAB PO SCH (10:51)
[2017-02-07] MEDS: FLUTICASONE PROPIONATE 50 MCG/ACT 16 GM NASAL SPRAY EACH NARE SCH (10:51)
[2017-02-07] MEDS: PRAVASTATIN SOD 40 MG TAB PO SCH (10:51)
--- NOTE | 2017-02-07 10:51 | HHI.CCPN ---
Subjective Brief History HISTORY OF PRESENT ILLNESS Requested to see this very pleasant 81-year-old female with a C3 fracture. The patient had a fall tonight, was seen at [facility] and transferred over to us. She had a single episode of losing balance and had syncope, has also hit the right side of her face, both shoulders hurt, her neck was sore and her right knee was sore. She had no loss of consciousness, arrived hemodynamically stable. Patient is diagnosed with bruises from the fall as well as nondisplaced flecture of C3 and patient has a c-collar in place PAST MEDICAL HISTORY Significant for - 1. Bilateral knee replacements. 2. Diabetes. 3. Osteoarthritis. 4. Hypertension. 5. Hypothyroidism. 6. Hypercholesterolemia. 7. History of thyroidectomy. 8. Splenectomy. 9. Breast cancer. 10. Allergic rhinitis. 11. History of cervical fusion. 12. History of dementia. 24 Hour Review/Hospital Course Patient has been stable over the last 24 hours She is awake but disoriented and demented C-collar is in place and patient is grossly neurologically intact Will transfer patient to floor today and transfer to alf when okay with neurosurgery 02/06/17 Patient doing well Does not report any neurologic deficit moves all 4 extremities Pleasantly demented tolerating diet well Agree with neurosurgery that patient should not have any operative procedure at this time and were making efforts to transfer patient to rehabilitation Patient was discharged from ICU yesterday but no beds were available on the floor 02/07/17 Patient awake alert now conversing normally oriented in time and space and person Slightly cognitively impaired but very pleasant Patient stating in the ICU because there are no beds available on the floor and patient has not been transferred to the alf as the process is administratively in progress according to the case management Objective Vital Signs Date Time Temp Pulse Resp B/P Pulse Ox O2 Delivery O2 Flow Rate FiO2 02/07/17 04:00 97.5 82 17 126/63 96 02/05/17 02:00 Room Air Intake and Output 02/06/17 02/06/17 02/07/17 08:00 16:00 00:00 Intake Total 480 ml 660 ml 965 ml Output Total 1000 ml 350 ml 650 ml Balance -520 ml 310 ml 315 ml Result Diagram: 02/07/17 0419 02/07/17 0419 Exam STOGIE PACKER Neurologically intact mild neck pain Hemodynamic/Cardiac Hemodynamically stable Pulmonary/Respiratory Bilateral good breath sounds with good pulmonary expansion Abdomen/GI Nutrition Abdomen soft active bowel sounds tolerating diet well Renal/I&O Euvolemic good renal function Assessment and Plan Attestation Patient remains in the ICU as a border with deescalated level of care and acuity due to disposition issues The exam, history, and the medical decision-making described in the above note were completed with the assistance of the mid-level provider. I reviewed and agree with the findings presented. I attest that I had a [id number] encounter with the patient on the same day, and personally performed and documented my assessment and findings in the medical record. Kasia Ratliff MD February 07, 2017 10:51
[2017-02-07 12:00] VITALS: BP 127/58; PULSE 84; RESP 23; TEMP 98.5; O2SAT 95
--- NOTE | 2017-02-07 15:52 | HHI.NSPN ---
History Interval History 82-year-old female who reportedly tripped and fell at home yesterday and hit her head on a metal cabinet with a questionable loss of consciousness. She was taken to [facility] in [place] emergency room and underwent a workup including a CT scan of the head which did not reveal any intracranial abnormality. She was found to have a nasal bone fracture and a CT of the cervical spine revealed a C3 sagittal plane anterior vertebral body fracture without any retropulsion or any of facet fractures. She has history of C5-C6 interbody noninstrumented fusion as well as advanced C6-7 degenerative disc disease with discoid collapse. She was placed in a collar and transferred to [facility] for further management of her traumatic injuries. She has a history of dementia and is confused as to her orientation but does not complained of any significant neck pain or relate any history of a stroke in the past. 02/06/17: Pt awake and alert. Sitting up in chair. Denies neck pain. No radiculopathy in UEs. No paresthesias in UEs. Cervical collar intact. 02/07/17: Sleeping but easily arousable. Complains of generalized soreness but no neck pain or any radiculopathy. Exam Results Vital Signs Date Time Temp Pulse Resp B/P Pulse Ox O2 Delivery O2 Flow Rate FiO2 02/07/17 12:00 98.5 84 23 127/58 95 02/05/17 02:00 Room Air Intake and Output 02/06/17 02/06/17 02/07/17 08:00 16:00 00:00 Intake Total 480 ml 660 ml 965 ml Output Total 1000 ml 350 ml 650 ml Balance -520 ml 310 ml 315 ml Physical Examination Resp: CTA bilaterally Heart: NSR no murmurs Abd: Soft positive bs Skin: right facial ecchymosis. Muscle: Moves all 4 extremities. Mild left hemiparesis. She has left EHL weakness compared to the right. Gonzales cervical collar in place. Neuro: Pt awake and alert. Sitting up in chair. follows commands well. speech clear and appropriate. Gonzales J cervical collar in place. Lab, Micro, Other Results Laboratory Tests Test 02/07/17 04:19 White Blood Count 10.5 Red Blood Count 3.41 Hemoglobin 10.5 Hematocrit 31.3 Mean Corpuscular Volume 91.9 Mean Corpuscular Hemoglobin 30.8 Mean Corpuscular Hemoglobin 33.6 Concent Red Cell Distribution Width 13.9 Platelet Count 232 Mean Platelet Volume 9.1 Neutrophils (%) (Auto) 68.9 Lymphocytes (%) (Auto) 15.9 Monocytes (%) (Auto) 13.0 Eosinophils (%) (Auto) 1.9 Basophils (%) (Auto) 0.3 Neutrophils # (Auto) 7.3 Lymphocytes # (Auto) 1.7 Monocytes # (Auto) 1.4 Eosinophils # (Auto) 0.2 Basophils # (Auto) 0.0 CBC Comment DIFF FINAL Differential Comment Sodium Level 142 Potassium Level 4.1 Chloride Level 109 Carbon Dioxide Level 24.6 Anion Gap 8 Blood Urea Nitrogen 16 Creatinine 1.13 Estimat Glomerular Filtration 46 Rate Random Glucose 153 Calcium Level 8.7 Magnesium Level 1.7 Total Bilirubin 0.5 Aspartate Amino Transf 25 (AST/SGOT) Alanine Aminotransferase 21 (ALT/SGPT) Alkaline Phosphatase 38 Total Protein 6.4 Albumin 2.7 Medical Decision Making Impression and Plan 82 y/o FM C3 vertebral body fracture which is oriented in the coronal plane and extends into the inferior aspect of the body without any retropulsion or displacement. Hypertension which is well regulated. Diabetes mellitus on sliding scale coverage. Nasal bone fracture; follow-up with oral maxillofacial surgery. She is cleared for transfer to nursing home facility. Cervical collar on at all times for C3 fracture. Follow-up in the office in 6 weeks with cervical spine AP and lateral x-rays prior to visit. The fracture will likely heal in 3-4 months. Rusty Bernard MD February 07, 2017 15:52
--- NOTE | 2017-02-08 10:26 | HHI.DS ---
Discharge Summary Admission Date February 05, 2017 at 00:33 Discharge Date: February 07, 2017 Admitting Diagnosis C3 fracture, nasal bone fx, s/p fall (1) Nasal bone fracture ICD Code: S02.2XXA Diagnosis: Principal (2) Closed C3 fracture ICD Code: S12.200A Diagnosis: Principal (3) Fall ICD Code: W19.XXXA Diagnosis: Principal Brief History Fall. CBC/BMP: 02/07/17 0419 02/07/17 0419 Significant Findings Laboratory Tests Test 02/06/17 02/07/17 04:42 04:19 White Blood Count 11.6 TH/MM3 (4.0-11.0) Red Blood Count 3.58 MIL/MM3 3.41 MIL/MM3 (4.00-5.30) (4.00-5.30) Hemoglobin 11.0 GM/DL 10.5 GM/DL (11.6-15.3) (11.6-15.3) Hematocrit 32.9 % 31.3 % (35.0-46.0) (35.0-46.0) Monocytes (%) (Auto) 12.7 % 13.0 % (0.0-8.0) (0.0-8.0) Neutrophils # (Auto) 8.1 TH/MM3 (1.8-7.7) Monocytes # (Auto) 1.5 TH/MM3 1.4 TH/MM3 (0-0.9) (0-0.9) Creatinine 1.17 MG/DL 1.13 MG/DL (0.50-1.00) (0.50-1.00) Estimat Glomerular Filtration 44 ML/MIN (>89) 46 ML/MIN (>89) Rate Random Glucose 173 MG/DL 153 MG/DL (74-106) (74-106) Alkaline Phosphatase 39 U/L (45-117) 38 U/L (45-117) Albumin 3.0 GM/DL 2.7 GM/DL (3.4-5.0) (3.4-5.0) Chloride Level 109 MEQ/L (98-107) Imaging Last Impressions Chest X-Ray 02/06/17 0000 Signed Impressions: Service Date/Time: January 05:32 - CONCLUSION: No acute disease. Ervin Bradford MD Cervical Spine MRI 02/05/17 0000 Signed Impressions: Service Date/Time: Sunday, February 05, 2017 14:12 - CONCLUSION: 1. Fracture of anterior column C3 vertebrae. 2. Moderate thecal sac stenosis C5-6. 3. Neural foramina compromise bilaterally C5-6 with effacement of the anterior CSF space at C6-7 without any cord compression. Justin Khan MD Brain MRI 02/05/17 0000 Signed Impressions: Service Date/Time: Sunday, February 05, 2017 14:12 - CONCLUSION: 1. Cortical atrophy and microvascular ischemic demyelinative change. Stable compared to previous exam. Nnamdi Jones MD PE at Discharge GENERAL: This is an 82 year old female sitting up in a chair in no distress. SKIN: Warm and dry. HEAD: Atraumatic. Normocephalic. EYES: PERRLA ENT: No nasal bleeding or discharge. Mucous membranes pink and moist. NECK: Trachea midline. No JVD. CARDIOVASCULAR: Regular rate and rhythm. RESPIRATORY: No accessory muscle use. Lungs are clear to auscultation. Breath sounds equal bilaterally. GASTROINTESTINAL: Abdomen soft, non-tender, nondistended. MUSCULOSKELETAL: Extremities without cyanosis, or edema. No obvious deformities. + peripheral pulses x 4. Good capillary refill and sensation. MAEW. NEUROLOGICAL: Awake and alert. Normal speech. Hospital Course ABSENTEE-SHAWNEE: This is an 82 year old female who sustained a fall. She fell at home striking her head on a metal cabinet. There was no surgical interventions needed for her fractures, and she was DC and transferred to a SNF in [place] close to her home per request, for continued care and rehabilitation. PMHx: allergic rhinitis, OA, breast cancer, DM, HLD, HTN, DEMENTIA, Thyroidectomy. Splenectomy. Bilat knee replacements. Cervical fusion. INJURIES: Nasal bone fx C3 fx Consults: [facility]. Neurosurgery, [facility]. She is now eating and drinking well. Pain is controlled well with po pain medications and all hospital medications will continue at the SNF. Pt has been participating in PT and Ot while in the hospital and this will continue at the SNF. It is recommended that patient continue taking stool softeners while taking narcotics for pain control. All followup appointments have been provided to patient and she is reminded to keep all follow up appointment for continued health and recovery. Therefore the patient is now stable to transfer to a SNF from a trauma surgery standpoint. Thank you for allowing us to participate in her care. We wish Faith the best in her recovery. - Nasal bone FX No surgical intervention F/U with [facility] outpatient - C3 fx C collar serial neuro checks Non-surgical management Pain management - PT and OT ordered Pt Condition on Discharge: Stable Discharge Disposition: Discharge to SNF Discharge Instructions DIET: Follow Instructions for: As Tolerated, No Restrictions Activities you can perform: Regular-No Restrictions Activities to Avoid: Concussion Sports, Contact Sports, Driving Other Activity Instructions: cervical collar on at all times Flor Christiansen February 08, 2017 10:26
[2017-03-19] MEDS ORDERED: MONT10TA2 PO (14:21)
[2017-03-19] MEDS ORDERED: PRAV40TA2 PO (14:21)
[2017-03-19] MEDS ORDERED: LEVO-86 PO (14:21)
[2017-03-19] MEDS ORDERED: RAMI2.5C PO (14:21)
[2017-03-19] MEDS ORDERED: LEXA20TA PO (14:21)
== END 2017-02-07 15:30 | disposition short-term general hospital (02) | DRG 552 ==
LOC: NEPE 23:32 → NEDA 02-05 00:33 → N03A 02-05 01:56
PROVIDERS: ADMIT Surgery; ATTEND Surgery
DX: S12.200A Unspecified displaced fracture of third cervical vertebra, initial encounter for closed fracture (principal); G81.94 Hemiplegia, unspecified affecting left nondominant side; F03.90 Unspecified dementia, unspecified severity, without behavioral disturbance, psychotic disturbance, mood disturbance, and anxiety; E11.9 Type 2 diabetes mellitus without complications; I10 Essential (primary) hypertension; S02.2XXA Fracture of nasal bones, initial encounter for closed fracture; Y92.9 Unspecified place or not applicable; E78.5 Hyperlipidemia, unspecified; M19.90 Unspecified osteoarthritis, unspecified site; Z85.3 Personal history of malignant neoplasm of breast; Z96.653 Presence of artificial knee joint, bilateral; Z90.81 Acquired absence of spleen; Z98.1 Arthrodesis status; W01.0XXA Fall on same level from slipping, tripping and stumbling without subsequent striking against object, initial encounter; E89.0 Postprocedural hypothyroidism; J30.9 Allergic rhinitis, unspecified
CPT/HCPCS: 70551; 71010; 72141; 80053; 82948; 83735; 85025; 87641; 99285; C9113; J7030; L0150; L0172

== ENCOUNTER → 2017-03-31 | Outpatient (CLI) | payer MEDICARE, OTHER ==
[~2017-03-31] MED LIST changes: -B COTAB3 PO; -CETI10 PO; +CETI10CA3 PO; +DOCU1CAP39 PO; +DONE10TA7 PO; -FISHCAP; +FLAXCAP; -FLON0.053; +FOLI800T PO; +LEVO-86 PO; +METF1000 PO; +MILKSUS PO; -MULT1TAB46 PO; +MULTTAB67 PO; +NAME5TAB2 PO; +PERC5TAB12 PO; +POLY17S PO; +RAMI2.5C PO; -RAMI2.5C29 PO; -SYNT125T PO; +TAMO20TA6 PO; -TRIA0.02 TOP
[2017-03-31 12:48] LABS: AUTOMATED NEUTROPHIL # 5.1 TH/MM3 (1.8-7.7); BASOPHIL # 0.1 TH/MM3 (0-0.2); BASOPHIL % 0.7 % (0.0-2.0); EOSINOPHIL # 0.2 TH/MM3 (0-0.4); EOSINOPHIL % 2.2 % (0.0-4.0); HEMATOCRIT 34.4 % (35.0-46.0); HEMO FLAGS DIFF FINAL; LYMPH % 19.3 % (9.0-44.0); LYMPHOCYTE # 1.4 TH/MM3 (1.0-4.8); MEAN CELL VOLUME 91.8 FL (80.0-100.0); MEAN CORPUSCULAR HEMOGLOBIN 30.5 PG (27.0-34.0); MEAN CORPUSCULAR HGB CONC 33.2 % (32.0-36.0); MONO % 9.9 % (0.0-8.0); NEUT % 67.9 % (16.0-70.0); PLATELET COUNT 305 TH/MM3 (150-450); RED BLOOD COUNT 3.75 MIL/MM3 (4.00-5.30); RED CELL DISTRIBUTION WIDTH 15.1 % (11.6-17.2); WHITE BLOOD COUNT 7.5 TH/MM3 (4.0-11.0)
[2017-03-31 12:59] LABS: APTT (PATIENT) 24.9 SEC (24.3-30.1); PROTHROMBIN TIME - PATIENT 10.6 SEC (9.8-11.6)
[2017-03-31 13:22] LABS: ALT (GPT) 21 U/L (10-53); ANION GAP 10 MEQ/L (5-15); AST (GOT) 25 U/L (15-37); BICARBONATE 23.2 MEQ/L (21.0-32.0); BLOOD UREA NITROGEN 15 MG/DL (7-18); CHLORIDE 108 MEQ/L (98-107); GLOMERULAR FILTRATION RATE 39 ML/MIN (>89); GLUCOSE,FASTING 145 MG/DL (74-99); POTASSIUM 4.2 MEQ/L (3.5-5.1); SODIUM (NA) 141 MEQ/L (136-145)
[2017-03-31 13:25] LABS: ALKALINE PHOSPHATASE 55 U/L (45-117); TOTAL BILIRUBIN ADULT 0.3 MG/DL (0.2-1.0)
--- NOTE | 2017-04-01 10:00 | EKG ---
Date Performed: 03/31/2017 Time Performed: 13:10:05 PTAGE: 82 years EKG: Sinus rhythm WITH OCCASIONAL VENTRICULAR PREMATURE COMPLEXES NONSPECIFIC T-WAVE ABNORMALITY BORDERLINE ECG Compar ed to prior tracing no significant change PREVIOUS TRACING : 09/01/14 DOCTOR: Dav Cook Interpretating Date/Time 04/01/2017 09:54:34
== END ==
LOC: CPRE 12:06
PROVIDERS: ATTEND Neurological Surgery
DX: Z01.812 Encounter for preprocedural laboratory examination (principal); S32.019A Unspecified fracture of first lumbar vertebra, initial encounter for closed fracture; R94.31 Abnormal electrocardiogram [ECG] [EKG]; X58.XXXA Exposure to other specified factors, initial encounter
CPT/HCPCS: 36415; 80053; 85025; 85610; 85730; 93005

== ENCOUNTER → 2017-04-02 | Day surgery (SDC) | payer MEDICARE, OTHER ==
--- NOTE | 2017-04-01 12:04 | MH ---
cc: ODETTE POLLARD ROHIT K. M.D. DATE OF ADMISSION: 04/02/2017 ADMITTING DIAGNOSIS L2 vertebral body compression fracture. HISTORY OF PRESENT ILLNESS This is an 82-year-old female who we initially saw on 02/07/2017 after she tripped and fell at home and hit her head on a cabinet and was found to have a nasal bone fracture and a C3 vertebral body fracture without any retropulsion or any facet fractures. CT of the head was negative at that time for any intracranial abnormality. She was placed in a cervical collar and advised to follow-up in 6 weeks with neurosurgery. She followed up for evaluation of her C3 fracture and her family was present for the exam and states that her biggest complaint is low back pain that she has had and has a history of a chronic L1 vertebral body fracture. She denies any radiculopathy in the lower extremities. She has had multiple syncopal episodes and extensive work-up which did not reveal any underlying etiology. Cervical spine x-rays from March 14, 2017 revealed multilevel degenerative changes and osteopenia with the C3 fracture appearing to be healed. A follow-up MRI scan of the lumbar spine was obtained which revealed an acute moderate to severe compression fracture at L2 without canal compromise. The patient and her family are electing to proceed with a kyphoplasty. PAST MEDICAL HISTORY 1. Diabetes mellitus. 2. Hypothyroidism. 3. Renal disease. 4. Osteoarthritis. 5. Left breast cancer. 6. Dementia. 7. Depression. 8. Cervical fracture. MEDICATIONS Current medications: 1. Singulair 10 mg p.o. q.h.s. 2. Pravastatin 40 mg p.o. daily. 3. Ramipril 2.5 mg p.o. daily. 4. Lexapro 20 mg p.o. daily. 5. Synthroid 137 mcg p.o. daily. 6. Percocet 5/325 p.o. q.4h. p.r.n. pain. 7. Namenda 5 mg p.o. b.i.d. 8. Donepezil 10 mg p.o. q.h.s. 9. Folic acid 800 mcg p.o. daily. 10.Tamoxifen 20 mg p.o. b.i.d. 11.Metformin 1000 mg p.o. b.i.d. ALLERGIES 1. ASPIRIN. 2. BACTRIM. 3. THIOPENTAL. FAMILY HISTORY Father is at 79-year-old with heart disease. Mother is at 99-year-old of natural causes. Brother is at [id number] with complications from pneumonia. She has a sister who is alive. SOCIAL HISTORY She is . She has four children. She does not smoke and has not smoked in the past. She does not drink alcohol. REVIEW OF SYSTEMS CONSTITUTIONAL: She denies any fever or chills. EARS, NOSE, AND THROAT: No pharyngitis, exudates or bloody drainage from her nose. CARDIOVASCULAR: She denies any chest pain or palpitations. RESPIRATORY: No cough or shortness of breath. GENITOURINARY: No dysuria or hematuria. MUSCULOSKELETAL: Positive for low back pain. No neck pain. SKIN: Positive for rash and itching. No wounds. NEUROLOGIC: No difficulty with speech. Positive for difficulty with memory. GASTROINTESTINAL: No constipation or diarrhea. Positive for nausea. PSYCHIATRIC: Positive for depression. No anxiety. ENDOCRINE: No polyuria or polydipsia. HEMATOLOGIC: No bruising or bleeding tendencies. PHYSICAL EXAMINATION HEAD: Normocephalic, atraumatic. NECK: Supple. LUNGS: Clear to auscultation bilaterally. HEART: Regular rate and rhythm. Normal S1, S2. ABDOMEN: Soft, nontender. Positive bowel sounds. SKIN: No cyanosis or erythema. MUSCULOSKELETAL: She has 5/5 strength in the upper and lower extremities. She is resting in her wheelchair currently but her family states that she does walk with a walker. NEUROLOGIC: She is awake, alert and oriented. Cranial nerves II through XII appear grossly intact. Her speech is fluent. Comprehension is good. She does have poor memory recall. IMPRESSION An 82-year-old female with an L2 vertebral body fracture without any retropulsion. She has a remote history of a C3 fracture which has healed on followup x-rays and she has weaned off of her cervical collar. PLAN We have discussed treatment options with the patient in regards to her L2 vertebral body compression fracture and the patient and her family are requesting that we proceed with kyphoplasty stating that she is having significant low back pain. We have discussed the procedure as well as the risk, benefit, alternative and recovery time in great detail with the patient and her family. We have discussed the risks involved with surgery include but are not limited to bleeding, infection, muscle weakness, voice hoarseness, difficulty swallowing, heart attack, stroke, blood clots as well as chronic pain, among others. The patient and her family state that they understand the procedure and they are requesting that we proceed and she was therefore scheduled accordingly. Dictated by: Brandan Ochoa PA-C MD HECTOR Fields/LAURA /11:15 AM /11:53 AM
[~2017-04-02] VITALS: Ht 172.7 cm; Wt 81.9 kg
[~2017-04-02] MED LIST changes: +*MEPERIDINE 25 MG INJ VIAL PERIprocedural Use ONLY ONE; +*ONDANSETRON 4 MG VIAL PERIprocedural Use ONLY ONE; +ACETAMINOPHEN 1000 MG/100 ML VIAL IV ONE; +BUPIVACAINE/EPINEPHRINE 0.5% PF 10 ML VIAL ONE; +CHLORHEXIDINE GLUCONATE 2 % 1 PACK (2 CLOTHS) TOPICAL PRN; +DO NOT ADM ANY ANTICOAGULANT DRUGS PRN; +FAMOTIDINE 20 MG/2 ML VIAL ONE; -FLAXCAP; +INSULIN HUMAN REGULAR 1,000 UNITS/10 ML VIAL SQ PRN; +IOHEXOL 350 MG/ML 50 ML BTL (for RAD DIAG) ONE; +KETAMINE HCL 500 MG/5 ML VIAL ONE; +LACTATED RINGER'S 1000 ML IV PRN; +METOPROLOL TARTRATE 25 MG TAB PO PRN; +NEOSTIGMINE 3 MG/3 ML SYR IV ONE; +ONDANSETRON HCL 4 MG/2 ML VIAL IV PUSH ONE; +POVIDONE IODINE 5% (ANTISEPSIS KIT) 4 APPLICATIONS EACH NARE PRN; +PROPOFOL 200 MG/20 ML AMP IV ONE; +SODIUM CHLOR 0.9% 1000 ML INJ 1,000 ML IV SCH; +SODIUM CHLORID 0.9% 500 ML IV PRN; +ePHEDrine/NS 25 MG/5 ML SYR IV ONE; +fentaNYL CITRATE 250 MCG/5 ML AMP ONE
[2017-04-02 06:42] VITALS: BP 140/72; PULSE 65; RESP 16; TEMP 97.6; O2SAT 97
[2017-04-02 06:49] LABS: BACTERIA, URINE RARE /hpf; BLOOD, URINE NEG (NEG); COMMENT (UR) CULT NOT INDICATED; CULTURE IF INDICATED CULT NOT INDICATED; GLUCOSE,URINE NEG (NEG); KETONE, URINE NEG (NEG); NITRITE,URINE NEG (NEG); SQUAMOUS EPITHELIAL CELL URINE 2 /hpf (0-5); URINE COLOR YELLOW (YELLW/STRAW)
[2017-04-02] MEDS: ceFAZolin 2 GM PREMIX 50 ML IV SCH ×2 (07:19→07:22)
--- NOTE | 2017-04-02 09:36 | PD.OP ---
Dr. Pk Palma Operative Report Date of Surgery: Apr 02, 2017 Preoperative Diagnosis: Intractable low back pain from L2 vertebral body compression fracture Postoperative Diagnosis: Same Procedure: Lumbar L2 kyphoplasty Anesthesia: Gen. endotracheal by Brice Ingram Surgeon: Rusty Bernard M.D. Dowel Machine Operator(s): None Operation and Findings: Following administration of a general endotracheal anesthesia patient was placed in the prone position on chest rolls and Anish table and all pressure points adequate padded. IV antibiotics were administered intravenously and the thoracolumbar area posteriorly prepped with a Betadine solution and painted and draped in the usual sterile fashion. Using AP and lateral arthroscopy guidance the stab incision site was made at the L2 level overlying the left pedicle after infiltrating the skin was 0.5% Marcaine. The Jamshidi needle was then passed into the vertebral body through the pedicle and with the hand-held drill a trajectory created. The drill was then removed and then the balloon passed into the vertebral body and dilated to create a cavity and restore vertebral body height. Subsequently the balloon was removed and the cavity packed with the bone cement 5 cc total. The guide was then removed and Steri-Strips applied at the puncture wounds along with a sterile dressing. He was then turned in spine position, extubated and taken to the recovery room. There were no intraoperative medications and all sponge and needle count was correct at the end the procedure. Estimated blood loss less than 5 cc. Rusyt Bernard MD Apr 02, 2017 09:36
--- NOTE | 2017-04-02 09:45 | RADRPT ---
EXAM DATE/TIME: 04/02/2017 09:08 [place] COMPARISON: No previous studies available for comparison. INDICATIONS : Post-op kyphoplasty for L-2 compression fracture. MEDICAL HISTORY : None. SURGICAL HISTORY : None. ENCOUNTER: Initial ACUITY: 1 day PAIN SCORE: Non-responsive. LOCATION: Lumbar spine. FINDINGS: There is evidence for prior vertebroplasty. CONCLUSION: Intraoperative examination. Justin Khan MD on April 02, 2017 at 9:43 Board Certified Radiologist. This report was verified electronically.
[2017-04-02 10:00] VITALS: BP 171/73; PULSE 85; RESP 18; TEMP 96.8; O2SAT 97
== END | disposition home or self-care (01) ==
LOC: HSDC 05:41
PROVIDERS: ATTEND Neurological Surgery
DX: S32.029A Unspecified fracture of second lumbar vertebra, initial encounter for closed fracture (principal); E11.9 Type 2 diabetes mellitus without complications; E03.9 Hypothyroidism, unspecified; Z79.84 Long term (current) use of oral hypoglycemic drugs; W01.0XXA Fall on same level from slipping, tripping and stumbling without subsequent striking against object, initial encounter; Z85.3 Personal history of malignant neoplasm of breast
CPT/HCPCS: 01936; 22514; 72100; 81001; J0131; J0690; J2175; J2405; J2710; J3010; J7120; Q9967

== ENCOUNTER 2017-04-12 11:37 | Inpatient (IN) | payer MEDICARE, OTHER ==
[~2017-04-12] VITALS: Ht 172.7 cm; Wt 80.3 kg
[~2017-04-12 11:37] MED LIST changes: -*MEPERIDINE 25 MG INJ VIAL PERIprocedural Use ONLY ONE; -*ONDANSETRON 4 MG VIAL PERIprocedural Use ONLY ONE; -ACETAMINOPHEN 1000 MG/100 ML VIAL IV ONE; -BUPIVACAINE/EPINEPHRINE 0.5% PF 10 ML VIAL ONE; -CHLORHEXIDINE GLUCONATE 2 % 1 PACK (2 CLOTHS) TOPICAL PRN; -DO NOT ADM ANY ANTICOAGULANT DRUGS PRN; -DOCU1CAP39 PO; -FAMOTIDINE 20 MG/2 ML VIAL ONE; +FLAXCAP; -INSULIN HUMAN REGULAR 1,000 UNITS/10 ML VIAL SQ PRN; -IOHEXOL 350 MG/ML 50 ML BTL (for RAD DIAG) ONE; -KETAMINE HCL 500 MG/5 ML VIAL ONE; -LACTATED RINGER'S 1000 ML IV PRN; -METOPROLOL TARTRATE 25 MG TAB PO PRN; -MILKSUS PO; -NEOSTIGMINE 3 MG/3 ML SYR IV ONE; -ONDANSETRON HCL 4 MG/2 ML VIAL IV PUSH ONE; -POVIDONE IODINE 5% (ANTISEPSIS KIT) 4 APPLICATIONS EACH NARE PRN; -PROPOFOL 200 MG/20 ML AMP IV ONE; -SODIUM CHLOR 0.9% 1000 ML INJ 1,000 ML IV SCH; -SODIUM CHLORID 0.9% 500 ML IV PRN; -ePHEDrine/NS 25 MG/5 ML SYR IV ONE; -fentaNYL CITRATE 250 MCG/5 ML AMP ONE
[2017-04-12 11:43] VITALS: BP 124/61; PULSE 81; RESP 16; TEMP 98.1; O2SAT 97
--- NOTE | 2017-04-12 12:06 | PD ---
HPI Chief Complaint: Back/ Neck Pain or Injury Time Seen by Provider: 12:02 Travel History International Travel<30 days: No Contact w/Intl Traveler<30days: No Traveled to known affect area: No History of Present Illness HPI 82-year-old elderly female presents to the emergency department for evaluation of left dropfoot this started yesterday afternoon. Patient is status post L2 kyphoplasty done on April 02, [address] Bernard. She has had increased pain since the surgery, but started yesterday around lunchtime with dropfoot. She is having difficulty walking due to the dropfoot. She denies any fevers or chills. No chest pain or shortness of breath. No abdominal pain. No nausea, vomiting, diarrhea. Patient had follow with Dr. Bernard done on April 10, 2017, but dropfoot did not exist topically. He was going to refer her to pain management if pain persisted. PFSH Past Medical History Depression: Yes Cancer: Yes (BREAST CA L SIDE) Cardiovascular Problems: No High Cholesterol: Yes Diabetes: Yes Endocrine: Yes Genitourinary: No Hepatitis: No Hiatal Hernia: No Hypertension: Yes Immune Disorder: No Musculoskeletal: No Neurologic: Yes (LEFT HAND SHAKES AT TIME ) Psychiatric: No Reproductive: No Respiratory: No Immunizations Current: No Thyroid Disease: Yes Tubal Ligation: Yes Past Surgical History Abdominal Surgery: Yes (SPLEEN REMOVED (1969)) Body Medical Devices: FUSSIONS Cardiac Surgery: No Ear Surgery: No Endocrine Surgery: No Eye Surgery: No Genitourinary Surgery: No Joint Replacement: Yes (STEVAN. KNEE) Neurologic Surgery: Yes (BACK DISC) Oral Surgery: No Thoracic Surgery: Yes (LUMPECTOMY LEFT BREAST (2013)) Other Surgery: Yes (CALCIUM NODES OFF THYROID, LUMPECTOMY LEFT BREAST) Social History Alcohol Use: No Tobacco Use: No Substance Use: No Allergies-Medications (Allergen,Severity, Reaction): Coded Allergies: Aspirin (Verified Allergy, Unknown, 04/10/17) Bactrim (Verified Allergy, Unknown, 04/10/17) Thiopental (Verified Allergy, Unknown, 04/10/17) Reported Meds & Prescriptions Reported Meds & Active Scripts Active Percocet (Oxycodone-Acetaminophen) 5-325 mg Tab 1 Tab PO Q4H PRN Polyethylene Glycol 3350 Powder (Polyethylene Glycol) 17 Gm Pow 17 Gm PO DAILY 30 Days Reported Flax, Fish & Borage Oil Sofgel (Fish Oil/Vit E/Fat No.5/Hc137) 1 Each Capsule Multiple Vitamin 1 Tab 1 Tab PO DAILY Zyrtec (Cetirizine HCl) 10 Mg Capsule 10 Mg PO DAILY Singulair (Montelukast Sodium) 10 Mg Tab 10 Mg PO HS Pravastatin 40 Mg Tab 40 Mg PO DAILY Ramipril 2.5 Mg Cap 2.5 Mg PO DAILY Lexapro (Escitalopram Oxalate) 20 Mg Tab 20 Mg PO DAILY Synthroid (Levothyroxine Sodium) 137 Mcg Tab 137 Mcg PO DAILY Namenda (Memantine) 5 Mg Tab 5 Mg PO BID Donepezil 10 Mg Tab 10 Mg PO HS Folic Acid 800 Mcg Tab 1,000 Mg PO DAILY Tamoxifen (Tamoxifen Citrate) 20 Mg Tab 20 Mg PO DAILY Metformin (Metformin HCl) 1,000 Mg Tab 1,000 Mg PO BIDPC With meals Review of Systems Except as stated in HPI: all other systems reviewed are Neg Physical Exam Narrative GENERAL: Well-nourished, well-developed elderly female patient, afebrile SKIN: Focused skin assessment warm/dry. HEAD: Normocephalic. Atraumatic. EYES: No scleral icterus. No injection or drainage. NECK: Supple, trachea midline. No JVD or lymphadenopathy. CARDIOVASCULAR: Regular rate and rhythm without murmurs, gallops, or rubs. RESPIRATORY: Breath sounds equal bilaterally. No accessory muscle use. Lungs sounds clear to auscultation. GASTROINTESTINAL: Abdomen soft, non-tender, nondistended. MUSCULOSKELETAL: No cyanosis, or edema. Patient is unable to dorsiflex her left foot. Patient can wiggle toes on bilateral feet. She reports full sensation in the bilateral distal lower extremities. Full plantar flexion and dorsiflexion of the right foot. BACK: Nontender without obvious deformity. No CVA tenderness. Data Data Last Documented VS Vital Signs Date Time Temp Pulse Resp B/P Pulse Ox O2 Delivery O2 Flow Rate FiO2 04/12/17 11:43 98.1 81 16 124/61 97 Orders Iv Access Insert/Monitor (04/12/17 11:58) Complete Blood Count With Diff (04/12/17 11:58) Comprehensive Metabolic Panel (04/12/17 11:58) Prothrombin Time / Inr (Pt) (04/12/17 11:58) Act Partial Throm Time (Ptt) (04/12/17 11:58) Urinalysis - C+S If Indicated (04/12/17 11:58) Mri L Spine W&W/O Contrast (04/12/17 ) Mri T Spine W & W/O Contrast (04/12/17 ) Gadodiamide Pf Inj (Omniscan Pf Inj) (04/12/17 14:17) Donepezil (Aricept) (04/12/17 21:00) Escitalopram (Lexapro) (04/13/17 09:00) Folic Acid (Folate) (04/13/17 09:00) Memantine (Namenda) (04/12/17 21:00) Metformin (Glucophage) (04/13/17 09:00) Montelukast (Singulair) (04/12/17 21:00) Polyethylene Glycol (Miralax) (04/13/17 09:00) Ramipril (Altace) (04/13/17 09:00) Tamoxifen (Nolvadex) (04/13/17 09:00) Cetirizine (Zyrtec) (04/13/17 09:00) Levothyroxine (Synthroid) (04/13/17 06:00) Multivitamin (Theragran) (04/13/17 09:00) Admit To Inpatient (04/12/17 19:11) Vital Signs (Adult) Q4H (04/12/17 19:11) Elevate Head Of Bed (04/12/17 19:11) Diet 1800 Ada Cons Carb (04/13/17 Breakfast) Complete Blood Count With Diff (04/13/17 06:00) Basic Metabolic Panel (Bmp) (04/13/17 06:00) Prothrombin Time / Inr (Pt) (04/13/17 06:00) Act Partial Throm Time (Ptt) (04/13/17 06:00) Resp Incentive Spirometry (04/12/17 19:11) Consult Pt Eval & Treat (04/12/17 19:11) Activity Oob With Assistance PRN (04/12/17 19:11) Scd Bilateral/Knee High TWIN.QSHIFT (04/12/17 19:11) Inpatient Certification (04/12/17 ) Acetamin-Hydrocod 325-5 Mg ([place] 5-325 (04/12/17 19:15) Levothyroxine (Synthroid) (04/13/17 06:00) Admit Order (Ed Use Only) (04/12/17 19:38) Labs Laboratory Tests Test 04/12/17 04/12/17 12:40 15:30 White Blood Count 6.4 TH/MM3 Red Blood Count 3.43 MIL/MM3 Hemoglobin 10.7 GM/DL Hematocrit 31.7 % Mean Corpuscular Volume 92.4 FL Mean Corpuscular Hemoglobin 31.2 PG Mean Corpuscular Hemoglobin 33.8 % Concent Red Cell Distribution Width 15.5 % Platelet Count 295 TH/MM3 Mean Platelet Volume 9.3 FL Neutrophils (%) (Auto) 60.1 % Lymphocytes (%) (Auto) 22.4 % Monocytes (%) (Auto) 12.7 % Eosinophils (%) (Auto) 4.2 % Basophils (%) (Auto) 0.6 % Neutrophils # (Auto) 3.8 TH/MM3 Lymphocytes # (Auto) 1.4 TH/MM3 Monocytes # (Auto) 0.8 TH/MM3 Eosinophils # (Auto) 0.3 TH/MM3 Basophils # (Auto) 0.0 TH/MM3 CBC Comment DIFF FINAL Differential Comment Prothrombin Time 10.3 SEC Prothromb Time International 0.9 RATIO Ratio Activated Partial 24.6 SEC Thromboplast Time Sodium Level 137 MEQ/L Potassium Level 4.3 MEQ/L Chloride Level 106 MEQ/L Carbon Dioxide Level 24.0 MEQ/L Anion Gap 7 MEQ/L Blood Urea Nitrogen 15 MG/DL Creatinine 1.09 MG/DL Estimat Glomerular Filtration 48 ML/MIN Rate Random Glucose 146 MG/DL Calcium Level 9.0 MG/DL Total Bilirubin 0.3 MG/DL Aspartate Amino Transf 16 U/L (AST/SGOT) Alanine Aminotransferase 15 U/L (ALT/SGPT) Alkaline Phosphatase 52 U/L Total Protein 6.7 GM/DL Albumin 3.0 GM/DL Urine Color YELLOW Urine Turbidity CLEAR Urine pH 6.0 Urine Specific [place] 1.012 Urine Protein NEG mg/dL Urine Glucose (UA) NEG mg/dL Urine Ketones NEG mg/dL Urine Occult Blood NEG Urine Nitrite NEG Urine Bilirubin NEG Urine Urobilinogen LESS THAN 2.0 MG/DL Urine Leukocyte Esterase MOD Urine RBC 2 /hpf Urine WBC 3 /hpf Urine Squamous Epithelial 2 /hpf Cells Urine Mucus FEW /lpf Microscopic Urinalysis Comment CULT NOT INDICATED MDM Medical Decision Making Medical Screen Exam Complete: Yes Emergency Medical Condition: Yes Medical Record Reviewed: Yes Interpretation(s) Last Impressions Thoracic Spine MRI 04/12/17 0000 Signed Impressions: Service Date/Time: Wednesday, April 12, 2017 13:31 - CONCLUSION: Degenerative changes without any significant compromise to the thecal sac or the exiting nerve roots. Justin Khan MD Lumbar Spine MRI 04/12/17 0000 Signed Impressions: Service Date/Time: Wednesday, April 12, 2017 13:31 - CONCLUSION: 1. Subacute fracture of the inferior endplate of L1 without any significant compression. 2. Neuroforamina compromise bilateral L4-L5 without any significant thecal sac stenosis. Justin Khan MD Differential Diagnosis cord compression vs. neuropathy vs. herniated disc Narrative Course 82-year-old elderly female presents to the emergency department for evaluation of left dropfoot. Patient status post L2 kyphoplasty done on April 02, [address] Bernard. IV access established. CBC, CMP, PTT, PTT/INR ordered and pending. UA is ordered and pending. MRI of the T-spine and L-spine with and without contrast are ordered and pending. CBC shows no acute abnormality. CMP shows creatinine 1.09, glucose 146. Coags are unremarkable. UA shows moderate leukocyte esterase, 3 WBC. MRI T-Spine shows degenerative changes without any significant compromise to the thecal sac or the exiting nerve roots. MRI L-Spine shows subacute fracture of the inferior endplate of L1 without any significant compression, neuroforamina compromised bilateral L4-L5 without any significant thecal sac stenosis. 1630 - I spoke to Dr. Quesada, neurosurgeon on-call for Dr. Bernard. He reviewed MRIs. He will see the patient. Dr. Scott saw patient and wrote orders for admission. Diagnosis Primary Impression: L1 vertebral fracture Qualified Code: S32.018A - Other closed fracture of first lumbar vertebra, initial encounter Additional Impression: Left foot drop Admitting Information Admitting Physician Requests: Admit ScottBisi Apr 12, 2017 12:06
[2017-04-12 13:01] LABS: AUTOMATED NEUTROPHIL # 3.8 TH/MM3 (1.8-7.7); BASOPHIL % 0.6 % (0.0-2.0); EOSINOPHIL # 0.3 TH/MM3 (0-0.4); EOSINOPHIL % 4.2 % (0.0-4.0); HEMATOCRIT 31.7 % (35.0-46.0); HEMO FLAGS DIFF FINAL; LYMPH % 22.4 % (9.0-44.0); LYMPHOCYTE # 1.4 TH/MM3 (1.0-4.8); MEAN CELL VOLUME 92.4 FL (80.0-100.0); MEAN CORPUSCULAR HEMOGLOBIN 31.2 PG (27.0-34.0); MEAN CORPUSCULAR HGB CONC 33.8 % (32.0-36.0); MONO % 12.7 % (0.0-8.0); NEUT % 60.1 % (16.0-70.0); PLATELET COUNT 295 TH/MM3 (150-450); RED BLOOD COUNT 3.43 MIL/MM3 (4.00-5.30); RED CELL DISTRIBUTION WIDTH 15.5 % (11.6-17.2); WHITE BLOOD COUNT 6.4 TH/MM3 (4.0-11.0)
[2017-04-12 13:12] LABS: APTT (PATIENT) 24.6 SEC (24.3-30.1); INTERNATIONAL NORMALIZED RATIO 0.9 RATIO; PROTHROMBIN TIME - PATIENT 10.3 SEC (9.8-11.6)
[2017-04-12 13:24] LABS: ANION GAP 7 MEQ/L (5-15); AST (GOT) 16 U/L (15-37); BLOOD UREA NITROGEN 15 MG/DL (7-18); CHLORIDE 106 MEQ/L (98-107); GLOMERULAR FILTRATION RATE 48 ML/MIN (>89); POTASSIUM 4.3 MEQ/L (3.5-5.1); SODIUM (NA) 137 MEQ/L (136-145)
[2017-04-12 13:25] LABS: ALT (GPT) 15 U/L (10-53)
[2017-04-12 13:27] LABS: ALKALINE PHOSPHATASE 52 U/L (45-117); TOTAL BILIRUBIN ADULT 0.3 MG/DL (0.2-1.0)
[2017-04-12] MEDS ORDERED: GADODIAMIDE PF 287 MG/ML 20 ML VIAL (for RAD MRI) IV ONE (14:17)
--- NOTE | 2017-04-12 14:33 | RADRPT ---
EXAM DATE/TIME: 04/12/2017 13:31 CORRECTION Corrected on: April 12, 2017; [facility] COMPARISON: No previous studies available for comparison. INDICATIONS : Left leg weakness. CONTRAST: 11 cc Omniscan IV MEDICAL HISTORY : Hypertension. Diabetes mellitus type 2. Carcinoma, breast. SURGICAL HISTORY : Kyphoplasty. ENCOUNTER: Initial ACUITY: 1 day PAIN SCORE: 0/10 LOCATION: [facility] TECHNIQUE: Multiplanar multisequence MRI of the thoracic spine was performed. FINDINGS: There is evidence for prior vertebroplasty of L2 and subacute fracture of the inferior end plate of L 1 discussed on the lumbar spine MRI. Slight degenerative changes are seen within the disc space and f acets throughout. T1-T2: No appreciable compromise to the thecal sac, spinal cord, or the exiting nerve roots are seen. The neural foramina are grossly patent bilaterally. T2-T3: No appreciable compromise to the thecal sac, spinal cord, or the exiting nerve roots are seen. The neural foramina are grossly patent bilaterally. T3-T4: No appreciable compromise to the thecal sac, spinal cord, or the exiting nerve roots are seen. The neural foramina are grossly patent bilaterally. T4-T5: No appreciable compromise to the thecal sac, spinal cord, or the exiting nerve roots are seen. The neural foramina are grossly patent bilaterally. T5-T6: No appreciable compromise to the thecal sac, spinal cord, or the exiting nerve roots are seen. The neural foramina are grossly patent bilaterally. T6-T7: No appreciable compromise to the thecal sac, spinal cord, or the exiting nerve roots are seen. The neural foramina are grossly patent bilaterally. T7-T8: No appreciable compromise to the thecal sac, spinal cord, or the exiting nerve roots are seen. The neural foramina are grossly patent bilaterally. T8-T9: No appreciable compromise to the thecal sac, spinal cord, or the exiting nerve roots are seen. The neural foramina are grossly patent bilaterally. T9-T10: No appreciable compromise to the thecal sac, spinal cord, or the exiting nerve roots are see n. The neural foramina are grossly patent bilaterally. T10-T11: No appreciable compromise to the thecal sac, spinal cord, or the exiting nerve roots are se en. The neural foramina are grossly patent bilaterally. T11-T12: No appreciable compromise to the thecal sac, spinal cord, or the exiting nerve roots are se en. The neural foramina are grossly patent bilaterally. T12-L1: No appreciable compromise to the thecal sac, spinal cord, or the exiting nerve roots are s een. The neural foramina are grossly patent bilaterally. CONCLUSION: Degenerative changes without any significant compromise to the thecal sac or the exi ting nerve roots. Justin Khan MD on April 12, 2017 at 15:22 Board Certified Radiologist. This report was verified electronically.
--- NOTE | 2017-04-12 15:23 | RADRPT ---
EXAM DATE/TIME: 04/12/2017 13:31 [facility] COMPARISON: No previous studies available for comparison. INDICATIONS : Left leg weakness. CONTRAST: 16 cc Omniscan (gadodiamide) IV MEDICAL HISTORY : Metastatic, breast. Diabetes mellitus type 2. Hypertension. SURGICAL HISTORY : Kyphoplasty. ENCOUNTER: Initial ACUITY: 1 day PAIN SCORE: 0/10 LOCATION: [facility] TECHNIQUE: Multiplanar multisequence MRI of the lumbar spine was performed with and without contrast. FINDINGS: The most caudal appearing lumbar vertebra is numbered as L5. There is edema involving the inferior en dplate of L1 to a significant degree which demonstrates enhancement with what appears to be a fractur e involving the inferior endplate without any significant compression. There is old vertebroplasty of L2 with approximately 50-60% in reduction of mid height. There are cysts in the visualized kidneys. T12-L1: There is no evidence for any significant compromise to the thecal sac, or the exiting nerve roots. N o appreciable thecal sac stenosis is seen. The neural foramina and lateral recess appear patent bila terally. L1-L2: Slight bulging disc and hypertrophic changes and retropulsed fragment are seen with indentation on th e thecal sac and no significant compromise to the thecal sac or the exiting nerve roots. L2-L3: There is no evidence for any significant compromise to the thecal sac, or the exiting nerve roots. N o appreciable thecal sac stenosis is seen. The neural foramina and lateral recess appear patent bila terally. L3-L4: There is no evidence for any significant compromise to the thecal sac, or the exiting nerve roots. N o appreciable thecal sac stenosis is seen. The neural foramina and lateral recess appear patent bila terally. L4-L5: Moderate degenerative changes are seen within the disc space and facets. There is slight neural ac juan compromise bilaterally due to bulging disc and hypertrophic changes. Slight bulging disc and hype rtrophic changes are seen with indentation on the thecal sac and no significant compromise to the the lily sac. L5-S1: Slight bulging disc and hypertrophic changes are seen with indentation on the thecal sac and no signi ficant compromise to the thecal sac or the exiting nerve roots. CONCLUSION: 1. Subacute fracture of the inferior endplate of L1 without any significant compression. 2. Neuroforamina compromise bilateral L4-L5 without any significant thecal sac stenosis. Justin Khan MD on April 12, 2017 at 15:18 Board Certified Radiologist. This report was verified electronically.
[2017-04-12 15:54] LABS: BLOOD, URINE NEG (NEG); COMMENT (UR) CULT NOT INDICATED; CULTURE IF INDICATED CULT NOT INDICATED; GLUCOSE,URINE NEG (NEG); KETONE, URINE NEG (NEG); MUCUS URINE FEW /lpf (OCC); NITRITE,URINE NEG (NEG); SQUAMOUS EPITHELIAL CELL URINE 2 /hpf (0-5); URINE COLOR YELLOW (YELLW/STRAW)
[2017-04-12 17:30] VITALS: BP 121/73; PULSE 78; RESP 16; O2SAT 99
--- NOTE | 2017-04-12 19:38 | HHI.HP ---
HPI Service Neurosurgery Primary Care Physician Non-Staff Chief Complaint: Back pain, foot drop History of Present Illness 82-year-old female who was previously admitted to [facility] in early January 2017 after a fall in which she sustained a C3 fracture. This was treated conservatively. She was seen for outpatient follow-up by on and at that time complained of chronic low back pain with a history of an L1 fracture. Due to the low back complaints, an MRI of the lumbar spine was obtained which revealed an acute L1 compression fracture. She underwent a kyphoplasty on 04/02/17. She was seen back for neurosurgery follow-up on 2016 and at that time had no lower extremity neurologic deficit, although the back pain persisted. Plans at that time were to continue observation with possible referral to interventional pain management if pain persisted. The patient now presents back to the emergency room indicating that on 04/11/17 she developed a severe left foot drop. She has no pain or numbness in the left or right lower extremity. She continues to have low back pain which she states is possibly a little worse since the recent procedure. The patient is diabetic. Review of Systems Constitutional: DENIES: Fatigue, Fever Eyes: DENIES: Blurred vision, Diplopia Ears, nose, mouth, throat: DENIES: Vertigo Respiratory: DENIES: Cough, Shortness of breath Cardiovascular: DENIES: Chest pain, Palpitations Gastrointestinal: DENIES: Abdominal pain, Nausea, Vomiting Musculoskeletal: DENIES: Joint pain, Muscle aches, Joint Swelling Neurologic: COMPLAINS OF: Abnormal gait, Localized weakness, DENIES: Headache Psychiatric: COMPLAINS OF: Confusion Past Family Social History Allergies: Coded Allergies: Aspirin (Verified Allergy, Unknown, 04/10/17) Bactrim (Verified Allergy, Unknown, 04/10/17) Thiopental (Verified Allergy, Unknown, 04/10/17) Past Medical History Dementia Diabetes Hyperlipidemia Asthma Chronic depression No cardiac problems Past Surgical History Recent kyphoplasty as noted above. Tubal ligation Splenectomy Lumbar spine surgeries 2 in the Left knee arthroplasty 1993, right knee arthroplasty 1995 Cervical disc surgery 1989 Reported Medications Reported Meds & Active Scripts Active Percocet (Oxycodone-Acetaminophen) 5-325 mg Tab 1 Tab PO Q4H PRN Polyethylene Glycol 3350 Powder (Polyethylene Glycol) 17 Gm Pow 17 Gm PO DAILY 30 Days Reported Flax, Fish & Borage Oil Sofgel (Fish Oil/Vit E/Fat No.5/Hc137) 1 Each Capsule Multiple Vitamin 1 Tab 1 Tab PO DAILY Zyrtec (Cetirizine HCl) 10 Mg Capsule 10 Mg PO DAILY Singulair (Montelukast Sodium) 10 Mg Tab 10 Mg PO HS Pravastatin 40 Mg Tab 40 Mg PO DAILY Ramipril 2.5 Mg Cap 2.5 Mg PO DAILY Lexapro (Escitalopram Oxalate) 20 Mg Tab 20 Mg PO DAILY Synthroid (Levothyroxine Sodium) 137 Mcg Tab 137 Mcg PO DAILY Namenda (Memantine) 5 Mg Tab 5 Mg PO BID Donepezil 10 Mg Tab 10 Mg PO HS Folic Acid 800 Mcg Tab 1,000 Mg PO DAILY Tamoxifen (Tamoxifen Citrate) 20 Mg Tab 20 Mg PO DAILY Metformin (Metformin HCl) 1,000 Mg Tab 1,000 Mg PO BIDPC With meals Social History Lives with her family no history of cigarette or alcohol use Physical Exam Vital Signs Vital Signs Date Time Temp Pulse Resp B/P Pulse Ox O2 Delivery O2 Flow Rate FiO2 04/12/17 11:43 98.1 81 16 124/61 97 Physical Exam GENERAL: This is a well-nourished, well-developed patient, no apparent distress. SKIN: No abrasions, contusion, rash noted. Skin warm and dry. HEAD: Atraumatic. Normocephalic. No temporal or scalp tenderness. EYES: Sclerae are clear and nonicteric ENT: No facial edema or ecchymosis. No periorbital edema. NECK: Trachea midline. No cervical spine tenderness. CARDIOVASCULAR: Regular rate and rhythm without murmurs, gallops, or rubs. RESPIRATORY: Clear to auscultation. Breath sounds equal bilaterally. No wheezes , rales, or rhonchi. GASTROINTESTINAL: Abdomen soft, non-tender, nondistended. No hepato-splenomegaly , or palpable masses. No guarding. MUSCULOSKELETAL: Extremities without cyanosis, or edema. No joint tenderness, or edema noted. No calf tenderness. Dorsalis pedis pulses 2+ bilateral NEUROLOGICAL: Awake and alert Mild confusion and moderate memory loss Speech is clear Converses a little Follow simple commands well Answers questions appropriately Diminished judgment and insight Recent and remote memory are intact No evidence of anxiety or depression Pupils are equal and reactive to accommodation. Extra-ocular movements, facial sensorimotor, , and bilateral shoulder shrug are all intact. Sensation is intact to light touch in all extremities Strength normal major flexion and extension groups in the upper extremities and right lower extremity. Strength is 5/5 in left iliopsoas quadriceps and hamstrings. Left lower extremity strength is decreased to 0-1/5 left tibialis anterior, extensor hallucis longus, extensor digitorum, peroneus longus and brevis, with 5 /5 left tibialis posterior and gastrocsoleus. Nicolas's absent bilaterally No ankle clonus Plantar responses absent bilateral Fine motor movements intact upper extremities Laboratory Laboratory Tests Test 04/12/17 04/12/17 12:40 15:30 White Blood Count 6.4 Red Blood Count 3.43 Hemoglobin 10.7 Hematocrit 31.7 Mean Corpuscular Volume 92.4 Mean Corpuscular Hemoglobin 31.2 Mean Corpuscular Hemoglobin 33.8 Concent Red Cell Distribution Width 15.5 Platelet Count 295 Mean Platelet Volume 9.3 Neutrophils (%) (Auto) 60.1 Lymphocytes (%) (Auto) 22.4 Monocytes (%) (Auto) 12.7 Eosinophils (%) (Auto) 4.2 Basophils (%) (Auto) 0.6 Neutrophils # (Auto) 3.8 Lymphocytes # (Auto) 1.4 Monocytes # (Auto) 0.8 Eosinophils # (Auto) 0.3 Basophils # (Auto) 0.0 CBC Comment DIFF FINAL Differential Comment Prothrombin Time 10.3 Prothromb Time International 0.9 Ratio Activated Partial 24.6 Thromboplast Time Sodium Level 137 Potassium Level 4.3 Chloride Level 106 Carbon Dioxide Level 24.0 Anion Gap 7 Blood Urea Nitrogen 15 Creatinine 1.09 Estimat Glomerular Filtration 48 Rate Random Glucose 146 Calcium Level 9.0 Total Bilirubin 0.3 Aspartate Amino Transf 16 (AST/SGOT) Alanine Aminotransferase 15 (ALT/SGPT) Alkaline Phosphatase 52 Total Protein 6.7 Albumin 3.0 Urine Color YELLOW Urine Turbidity CLEAR Urine pH 6.0 Urine Specific [place] 1.012 Urine Protein NEG Urine Glucose (UA) NEG Urine Ketones NEG Urine Occult Blood NEG Urine Nitrite NEG Urine Bilirubin NEG Urine Urobilinogen LESS THAN 2.0 Urine Leukocyte Esterase MOD Urine RBC 2 Urine WBC 3 Urine Squamous Epithelial 2 Cells Urine Mucus FEW Microscopic Urinalysis Comment CULT NOT INDICATED Result Diagram: 04/12/17 1240 04/12/17 1240 Imaging 04/12/17 MRI lumbar and thoracic spine images are reviewed and compared to previous MRI from late February 2017. The new study reveals edema at the inferior L1 vertebral body with a inferior anterior endplate fracture, all of which are new compared to the study from February 2017. The previous L2 kyphoplasty is seen. No significant retropulsion into the canal. There is moderate left L4 5 lateral recess stenosis due to facet hypertrophy, which appears stable compared to the MRI from February 2017. However there is not definite significant left L5 nerve compression. Thoracic Spine MRI 04/12/17 0000 Signed Impressions: Service Date/Time: Wednesday, April 12, 2017 13:31 - CONCLUSION: Degenerative changes without any significant compromise to the thecal sac or the exiting nerve roots. Justin Khan MD Lumbar Spine MRI 04/12/17 0000 Signed Impressions: Service Date/Time: Wednesday, April 12, 2017 13:31 - CONCLUSION: 1. Subacute fracture of the inferior endplate of L1 without any significant compression. 2. Neuroforamina compromise bilateral L4-L5 without any significant thecal sac stenosis. Justin Khan MD Assessment and Plan Assessment and Plan Impression: 1. New inferior left L1 fracture on MRI 04/12/17 compared to previous MRI from February 2017. 2. Persistent severe low back pain. Status post L2 kyphoplasty 04/02/17. 3. Acute onset severe left foot drop 04/11/17. Plan: Options for treatment of the L1 fracture were discussed including conservative treatment and observation versus L1 kyphoplasty. Pros and cons and prognosis of each of been discussed. Options for treatment of the left foot drop been discussed. On examination, she does not have any radiating radicular pain and no L5 distribution numbness. She does not have any left hip abductor weakness and no weakness of the tibialis posterior. There is also no significant change in the left L4 5 lateral recess stenosis on the 04/12/17 MRI compared to the prior recent study from February 2017. It is questionable whether there is significant L5 nerve impingement on the MRI. These findings in addition to the possibility of diabetic neuropathy or peroneal neuropathy would raise question regarding the diagnosis of L5 radiculopathy, and diminish the prognosis with left L5 nerve decompression. The patient's family appears to understand all of the above. They do not wish to proceed with surgical intervention at this point. However they do indicate that the patient's back pain is quite severe, and they have not been able to manage her well at home. I advised them that from a safety and therapy standpoint, it would be best to readmit the patient at this point. They would like to discuss treatment options further with Dr. Penaloza who is more familiar with the patient, before making a decision regarding surgical intervention. They understand that in the event that she does have spinal L5 nerve compression, that early intervention may carry a better prognosis for recovery. Her diabetic medications and other medications will be continued except for the pravastatin and fish oil, should she proceed with surgery. She declines a lumbar brace . Stef Scott MD Apr 12, 2017 19:38
[2017-04-12] MEDS: MONTELUKAST SODIUM 10 MG TAB PO SCH (21:00)
[2017-04-12 21:21] VITALS: O2SAT 98
[2017-04-12] MEDS: DONEPEZIL HCL 5 MG TAB PO SCH (21:52)
[2017-04-12] MEDS: MEMANTINE HCL 5 MG TAB PO SCH (21:52)
[2017-04-12] MEDS: ACETAMINOPHEN/HYDROcodone 325 MG/5 MG TAB PO PRN (21:53)
[2017-04-13] VITALS (7 sets, daily range): BP systolic 138–178; BP diastolic 67–92; PULSE 65–84; RESP 16–20; TEMP 96.7–98.6; O2SAT 95–98
[2017-04-13] MEDS: LEVOTHYROXINE SODIUM 112 MCG TAB PO SCH (06:10)
[2017-04-13] MEDS: LEVOTHYROXINE SODIUM 25 MCG TAB PO SCH (06:10)
[2017-04-13 06:31] LABS: APTT (PATIENT) 26.1 SEC (24.3-30.1); PROTHROMBIN TIME - PATIENT 10.7 SEC (9.8-11.6)
[2017-04-13 06:39] LABS: BICARBONATE 26.2 MEQ/L (21.0-32.0); POTASSIUM 3.7 MEQ/L (3.5-5.1)
[2017-04-13 06:40] LABS: AUTOMATED NEUTROPHIL # 3.7 TH/MM3 (1.8-7.7); BASOPHIL # 0.1 TH/MM3 (0-0.2); BASOPHIL % 0.9 % (0.0-2.0); EOSINOPHIL # 0.4 TH/MM3 (0-0.4); HEMATOCRIT 33.3 % (35.0-46.0); HEMO FLAGS DIFF FINAL; LYMPH % 32.7 % (9.0-44.0); LYMPHOCYTE # 2.6 TH/MM3 (1.0-4.8); MEAN CELL VOLUME 92.7 FL (80.0-100.0); MEAN CORPUSCULAR HGB CONC 33.4 % (32.0-36.0); MONO % 14.3 % (0.0-8.0); NEUT % 47.1 % (16.0-70.0); PLATELET COUNT 307 TH/MM3 (150-450); RED BLOOD COUNT 3.59 MIL/MM3 (4.00-5.30); RED CELL DISTRIBUTION WIDTH 15.6 % (11.6-17.2); WHITE BLOOD COUNT 7.8 TH/MM3 (4.0-11.0)
[2017-04-13] MEDS ORDERED: FOLIC ACID 1 MG TAB PO SCH (09:00)
[2017-04-13] MEDS: metFORMIN HCL 500 MG TAB PO SCH ×2 (09:51→16:28)
[2017-04-13] MEDS: RAMIPRIL 2.5 MG CAP PO SCH (09:51)
[2017-04-13] MEDS: POLYETHYLENE GLYCOL 17 GM PKG PO SCH (09:51)
[2017-04-13] MEDS: TAMOXIFEN CITRATE 10 MG TAB PO SCH (09:51)
[2017-04-13] MEDS: MULTIVITAMIN TAB PO SCH (09:51)
[2017-04-13] MEDS: ESCITALOPRAM OXALATE 20 MG TAB PO SCH (09:52)
[2017-04-13] MEDS: MEMANTINE HCL 5 MG TAB PO SCH ×2 (09:52→20:02)
[2017-04-13] MEDS: CETIRIZINE HCL 10 MG TAB PO SCH (09:52)
[2017-04-13] MEDS: FOLIC ACID 1 MG TAB PO SCH (12:19)
--- NOTE | 2017-04-13 15:22 | HHI.NSPN ---
History Chief Complaint: no complaints Interval History 82-year-old female who was previously admitted to [facility] in early January 2017 after a fall in which she sustained a C3 fracture. This was treated conservatively. She was seen for outpatient follow-up by on and at that time complained of chronic low back pain with a history of an L1 fracture. Due to the low back complaints, an MRI of the lumbar spine was obtained which revealed an acute L1 compression fracture. She underwent a kyphoplasty on 04/02/17. She was seen back for neurosurgery follow-up on 2016 and at that time had no lower extremity neurologic deficit, although the back pain persisted. Plans at that time were to continue observation with possible referral to interventional pain management if pain persisted. The patient now presents back to the emergency room indicating that on 04/11/17 she developed a severe left foot drop. She has no pain or numbness in the left or right lower extremity. She continues to have low back pain which she states is possibly a little worse since the recent procedure. The patient is diabetic. 04/13/17: Remains awake and alert. Left distal lower extremity weakness improved compared to admission exam. Exam Results Vital Signs Date Time Temp Pulse Resp B/P Pulse Ox O2 Delivery O2 Flow Rate FiO2 04/13/17 12:00 97.7 65 16 147/92 96 Intake and Output 04/12/17 04/12/17 04/13/17 08:00 16:00 00:00 Intake Total 240 ml Balance 240 ml Physical Examination Respirations clear to auscultation Cardiac regular without murmur Abdomen soft nontender No extremity edema Posterior tibial pulses 2+ bilateral Awake and alert Speech is slow but clear Remains with moderate confusion, poor judgment and insight. Follows commands well Sensation intact light touch all extremities Strength is normal right lower extremity flexion and extension groups Strength is diminished at 2/5 left iliopsoas, extensor hallucis longus, peroneus longus and brevis with 5/5 tibialis posterior gastrocsoleus. Lab, Micro, Other Results Laboratory Tests Test 04/12/17 04/13/17 15:30 05:45 Urine Color YELLOW Urine Turbidity CLEAR Urine pH 6.0 Urine Specific [place] 1.012 Urine Protein NEG mg/dL Urine Glucose (UA) NEG mg/dL Urine Ketones NEG mg/dL Urine Occult Blood NEG Urine Nitrite NEG Urine Bilirubin NEG Urine Urobilinogen LESS THAN 2.0 MG/DL Urine Leukocyte Esterase MOD Urine RBC 2 /hpf Urine WBC 3 /hpf Urine Squamous Epithelial 2 /hpf Cells Urine Mucus FEW /lpf Microscopic Urinalysis Comment CULT NOT INDICATED White Blood Count 7.8 TH/MM3 Red Blood Count 3.59 MIL/MM3 Hemoglobin 11.1 GM/DL Hematocrit 33.3 % Mean Corpuscular Volume 92.7 FL Mean Corpuscular Hemoglobin 31.0 PG Mean Corpuscular Hemoglobin 33.4 % Concent Red Cell Distribution Width 15.6 % Platelet Count 307 TH/MM3 Mean Platelet Volume 9.6 FL Neutrophils (%) (Auto) 47.1 % Lymphocytes (%) (Auto) 32.7 % Monocytes (%) (Auto) 14.3 % Eosinophils (%) (Auto) 5.0 % Basophils (%) (Auto) 0.9 % Neutrophils # (Auto) 3.7 TH/MM3 Lymphocytes # (Auto) 2.6 TH/MM3 Monocytes # (Auto) 1.1 TH/MM3 Eosinophils # (Auto) 0.4 TH/MM3 Basophils # (Auto) 0.1 TH/MM3 CBC Comment DIFF FINAL Differential Comment Prothrombin Time 10.7 SEC Prothromb Time International 1.0 RATIO Ratio Activated Partial 26.1 SEC Thromboplast Time Sodium Level 139 MEQ/L Potassium Level 3.7 MEQ/L Chloride Level 105 MEQ/L Carbon Dioxide Level 26.2 MEQ/L Anion Gap 8 MEQ/L Blood Urea Nitrogen 13 MG/DL Creatinine 1.10 MG/DL Estimat Glomerular Filtration 48 ML/MIN Rate Random Glucose 139 MG/DL Calcium Level 9.2 MG/DL Last Impressions Thoracic Spine MRI 04/12/17 0000 Signed Impressions: Service Date/Time: Wednesday, April 12, 2017 13:31 - CONCLUSION: Degenerative changes without any significant compromise to the thecal sac or the exiting nerve roots. Justin Khan MD Lumbar Spine MRI 04/12/17 0000 Signed Impressions: Service Date/Time: Wednesday, April 12, 2017 13:31 - CONCLUSION: 1. Subacute fracture of the inferior endplate of L1 without any significant compression. 2. Neuroforamina compromise bilateral L4-L5 without any significant thecal sac stenosis. Justin Khan MD Medical Decision Making Impression and Plan Impression: 1. New inferior left L1 fracture on MRI 04/12/17 compared to previous MRI from February 2017. 2. Persistent severe low back pain. Status post L2 kyphoplasty 04/02/17. 3. Acute onset severe left foot drop 04/11/17. Improved on examination today compared to 04/12/17 Plan: Findings were discussed with the patient. Her family is not with her in the room this morning during the visit. Distal left lower extremity strength is improving early, indicating a better prognosis. Doubt left L5 radiculopathy based on imaging studies, symptoms and examination. Possible diabetic neuropathy versus peroneal neuropathy. Continue physical therapy, conservative treatment Pain medications for back pain. Stef Scott MD Apr 13, 2017 15:22
[2017-04-13] MEDS: ACETAMINOPHEN/HYDROcodone 325 MG/5 MG TAB PO PRN (16:27)
[2017-04-13] MEDS: DONEPEZIL HCL 5 MG TAB PO SCH (20:03)
[2017-04-13] MEDS: MONTELUKAST SODIUM 10 MG TAB PO SCH (20:03)
[2017-04-14] MEDS: LEVOTHYROXINE SODIUM 25 MCG TAB PO SCH (05:28)
[2017-04-14] MEDS: LEVOTHYROXINE SODIUM 112 MCG TAB PO SCH (05:28)
[2017-04-14 08:00] VITALS: BP 146/65; PULSE 76; RESP 17; TEMP 97.6; O2SAT 96
[2017-04-14] MEDS: POLYETHYLENE GLYCOL 17 GM PKG PO SCH (09:00)
[2017-04-14] MEDS: TAMOXIFEN CITRATE 10 MG TAB PO SCH (09:36)
[2017-04-14] MEDS: ESCITALOPRAM OXALATE 20 MG TAB PO SCH (09:36)
[2017-04-14] MEDS: metFORMIN HCL 500 MG TAB PO SCH ×2 (09:41→17:53)
[2017-04-14] MEDS: MEMANTINE HCL 5 MG TAB PO SCH ×2 (09:41→23:51)
[2017-04-14] MEDS: RAMIPRIL 2.5 MG CAP PO SCH (09:44)
[2017-04-14] MEDS: CETIRIZINE HCL 10 MG TAB PO SCH (09:44)
[2017-04-14] MEDS: FOLIC ACID 1 MG TAB PO SCH (09:44)
[2017-04-14] MEDS: MULTIVITAMIN TAB PO SCH (09:44)
[2017-04-14 11:47] VITALS: BP 138/69; PULSE 79; RESP 17; TEMP 98.9; O2SAT 94
--- NOTE | 2017-04-14 12:24 | HHI.NSPN ---
(Issa Perez) History Chief Complaint: None (Issa Perez) Interval History 04/12: 82-year-old female who was previously admitted to [facility] in early January 2017 after a fall in which she sustained a C3 fracture. This was treated conservatively. She was seen for outpatient follow-up by on and at that time complained of chronic low back pain with a history of an L1 fracture. Due to the low back complaints, an MRI of the lumbar spine was obtained which revealed an acute L1 compression fracture. She underwent a kyphoplasty on 04/02/17. She was seen back for neurosurgery follow-up on 2016 and at that time had no lower extremity neurologic deficit, although the back pain persisted. Plans at that time were to continue observation with possible referral to interventional pain management if pain persisted. The patient now presents back to the emergency room indicating that on 04/11/17 she developed a severe left foot drop. She has no pain or numbness in the left or right lower extremity. She continues to have low back pain which she states is possibly a little worse since the recent procedure. The patient is diabetic. 04/13/17: Remains awake and alert. Left distal lower extremity weakness improved compared to admission exam. 04/14: Patient asleep but awakens to verbal stimuli. She has no complaints when seen this morning. She has no back pain as long as she doesn't move. (Issa Perez) System Review Comments Constitutional: Patient denies any fever or chills. Respiratory: Patient denies any shortness of breath or productive cough. Cardiovascular: Patient denies any chest pain, palpitation or irregular heartbeat. Gastrointestinal: Patient denies any abdominal pain, nausea, vomiting or incontinence of stool. Genitourinary: Patient denies any incontinence of urine. Musculoskeletal: Patient complains of back pain with movement and a left foot drop. She denies any arm or extremity pain or weakness. Neurologic: Patient denies any headache, dizziness, numbness or tingling. ( Issa Perez) Exam Results Vital Signs Date Time Temp Pulse Resp B/P Pulse Ox O2 Delivery O2 Flow Rate FiO2 04/14/17 11:47 98.9 79 17 138/69 94 Intake and Output 04/13/17 04/13/17 04/14/17 08:00 16:00 00:00 Intake Total 720 ml 120 ml Balance 720 ml 120 ml (Issa Perez) Physical Examination GENERAL: Patient asleep but awakens to verbal stimuli, alert & readily interacts afterward, no apparent distress. SKIN: Warm, dry & intact w/o any evident discolouration, rashes, ulceration or lesions. HEENT: Normocephalic, atraumatic. NECK: No JVD, trachea midline. CARDIOVASCULAR: S1S2 w/RRR w/o M/G/R, radial & pedal pulses 2+ bilaterally, cap refill < 2 sec, no pedal edema. RESPIRATORY: CTAB w/o W/R/R, equal excursion, nonlaboured, on RA. GASTROINTESTINAL: Abdomen soft, nontender, positive bowel sounds. MUSCULOSKELETAL: WILCOX w/o difficulty, slight left foot drop noted, no evident deformity or clubbing. BLE NTTP but patient develops spasms to the left foot with testing. Midline thoracolumbar spine & paraspinals NTTP. NEUROLOGICAL: Awakens to verbal stimuli but alert after that, oriented to person, place & time. Speech clear & appropriate. Follows simple commands. Sensation intact to light touch to BLE. Motor strength 5/5 to all major flexion & extension motor groups RLE. Motor strength LLE hip flexion & knee extension 5/5, knee flexion 3+ to 4/5, foot extension & inversion 3+ to 4/5, foot flexion & eversion 2+ to 3/5 (Issa Perez) Medical Decision Making Impression and Plan Impression: 1. New inferior left L1 fracture on MRI 04/12/17 compared to previous MRI from February 2017. 2. Persistent severe low back pain. Status post L2 kyphoplasty 04/02/17. 3. Acute onset severe left foot drop 04/11/17. Improved on examination 04/13/17 compared to 04/12/17 Doubt left L5 radiculopathy based on imaging studies, symptoms and examination. Possible diabetic neuropathy versus peroneal neuropathy. Continual improvement in left foot exam today. Plan: Discussed plan of care with the patient. Mobilise patient OOB at least BID. Continue physical therapy, conservative treatment. Pain medications for back pain. (Issa Perez) Attending Statement I have personally seen and examined the patient on 04/14/17. Pertinent documentation and study results have been reviewed by the undersigned. I have personally developed the treatment plan and performed medical decision making. Agree with findings, exam, and treatment plan as noted above. On my examination today, the patient remains moderately confused. No apparent distress. Sensation intact light touch lower extremities Strength is continuing to improve in the left lower extremity, now 3/5 left tibialis anterior peroneus longus and brevis tibialis posterior with 5/5 gastrocsoleus. Strength within normal limits in the right lower extremity. No complaint of hip or gluteal pain to palpation or range of motion. She ambulated 200 feet with therapy today without significant pain Impression 1. Status post L2 kyphoplasty 2. New L1 compression fracture. Pain appears to be improving with conservative treatment 3. New onset left foot drop. She is improving rapidly with conservative treatment. Doubtful related to L4 5 lateral recess stenosis. 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 (Stef Scott MD) Issa Perez Apr 14, 2017 12:24 Stef Scott MD Apr 14, 2017 19:02
[2017-04-14 16:00] VITALS: BP 176/67; PULSE 72; RESP 17; TEMP 97; O2SAT 99
--- NOTE | 2017-04-14 19:07 | HHI.DCPOC ---
Discharge Care Plan Diagnosis: (1) Fracture of L1 vertebra (2) Left foot drop (3) Diabetes (4) Hypertension (5) Hypothyroid (6) Hyperlipidemia Your Health Problems Are: Difficulty with ADL Exercise Tolerance Loss of Movements Chronic Pain Goals to Promote Your Health * To prevent worsening of your condition and complications * To maintain your health at the optimal level Directions to Meet Your Goals Take your medications as prescribed Follow your dietary instruction Follow activity as directed Keep your appointments as scheduled Take your immunizations and boosters as scheduled If your symptoms worsen call your PCP, if no PCP go to Urgent Care Center or Emergency Room Smoking is Dangerous to Your Health. Avoid second hand smoke Call the 24-hour hour crisis hotline for domestic abuse at Stef Scott MD Apr 14, 2017 19:07
[2017-04-14 20:30] VITALS: BP 152/65; PULSE 88; RESP 18; TEMP 97.7; O2SAT 97
[2017-04-14] MEDS: DONEPEZIL HCL 5 MG TAB PO SCH (23:51)
[2017-04-14] MEDS: MONTELUKAST SODIUM 10 MG TAB PO SCH (23:51)
[2017-04-15] VITALS: BP 147/69; PULSE 73; RESP 20; TEMP 96.9; O2SAT 95
[2017-04-15 04:00] VITALS: BP 143/72; PULSE 86; RESP 20; TEMP 96; O2SAT 95
[2017-04-15] MEDS: LEVOTHYROXINE SODIUM 25 MCG TAB PO SCH (05:38)
[2017-04-15] MEDS: LEVOTHYROXINE SODIUM 112 MCG TAB PO SCH (05:38)
[2017-04-15 08:00] VITALS: BP 151/87; PULSE 80; RESP 17; TEMP 99.7; O2SAT 94
[2017-04-15] MEDS: FOLIC ACID 1 MG TAB PO SCH (09:00)
[2017-04-15] MEDS: MULTIVITAMIN TAB PO SCH (09:00)
[2017-04-15] MEDS: RAMIPRIL 2.5 MG CAP PO SCH (09:00)
[2017-04-15] MEDS: metFORMIN HCL 500 MG TAB PO SCH (09:00)
[2017-04-15] MEDS: POLYETHYLENE GLYCOL 17 GM PKG PO SCH (09:00)
[2017-04-15] MEDS: MEMANTINE HCL 5 MG TAB PO SCH (09:00)
[2017-04-15] MEDS: ESCITALOPRAM OXALATE 20 MG TAB PO SCH (09:00)
[2017-04-15] MEDS: TAMOXIFEN CITRATE 10 MG TAB PO SCH (09:00)
[2017-04-15] MEDS: CETIRIZINE HCL 10 MG TAB PO SCH (09:00)
--- NOTE | 2017-04-15 10:52 | HHI.FF ---
Face to Face Verification Diagnosis: (1) Fracture of L1 vertebra (2) Diabetes (3) Hyperlipidemia (4) Hypertension (5) Hypothyroid (6) Left foot drop Physical Therapy Order: Evaluate and Treat, Improve ambulation, Strength and gait training Home Health Nursing Order: Nursing assessment with vital signs Instructions: Initial home nursing assessment. Vital signs. Assess additional needs for home care. I have seen patient Faith Garvey on 04/15/17. My clinical findings support the need for the requested home health care services because: Ltd mobility - disease progression Deconditioned w/ increased weakness Limited ability to care for self Need for psychosocial assistance High risk of falls I certify that my clinical findings support that this patient is homebound because: Unsteady gait/balance Unsafe to leave home unassisted Need for psychosocial assistance Unable to use public transportation Stef Scott MD Apr 15, 2017 10:52
[2017-04-15 11:44] VITALS: BP 129/70; PULSE 94; RESP 18; TEMP 97.9; O2SAT 100
--- NOTE | 2017-04-15 13:36 | HHI.NSPN ---
(Issa Perez) History Chief Complaint: Patient states she has been abandoned (Issa Perez) Interval History 04/12: 82-year-old female who was previously admitted to [facility] in early January 2017 after a fall in which she sustained a C3 fracture. This was treated conservatively. She was seen for outpatient follow-up by on and at that time complained of chronic low back pain with a history of an L1 fracture. Due to the low back complaints, an MRI of the lumbar spine was obtained which revealed an acute L1 compression fracture. She underwent a kyphoplasty on 04/02/17. She was seen back for neurosurgery follow-up on 2016 and at that time had no lower extremity neurologic deficit, although the back pain persisted. Plans at that time were to continue observation with possible referral to interventional pain management if pain persisted. The patient now presents back to the emergency room indicating that on 04/11/17 she developed a severe left foot drop. She has no pain or numbness in the left or right lower extremity. She continues to have low back pain which she states is possibly a little worse since the recent procedure. The patient is diabetic. 04/13/17: Remains awake and alert. Left distal lower extremity weakness improved compared to admission exam. 04/14: Patient asleep but awakens to verbal stimuli. She has no complaints when seen this morning. She has no back pain as long as she doesn't move. 04/15: The patient is awake, tearful and in moderately severe distress feeling that her family has abandoned her. She is noted to have tremors to both upper extremities, more so on the left. (Issa Perez) System Review Comments Constitutional: Patient awake & in moderately severe distress because she feels her family has abandoned her. She is quite tearful and is noted to have tremors to the upper extremities, left more than right. Respiratory: Patient denies any shortness of breath or productive cough. Cardiovascular: Patient denies any chest pain, palpitation or irregular heartbeat. Gastrointestinal: Patient denies any abdominal pain, nausea, vomiting or incontinence of stool. Genitourinary: Patient denies any incontinence of urine. Musculoskeletal: Patient complains of back pain with movement and a left foot drop. She denies any arm or extremity pain or weakness. Neurologic: Patient denies any headache, dizziness, numbness or tingling. ( Issa Perez) Exam Results Vital Signs Date Time Temp Pulse Resp B/P Pulse Ox O2 Delivery O2 Flow Rate FiO2 04/15/17 11:44 97.9 94 18 129/70 100 04/15/17 02:45 Room Air Intake and Output 04/14/17 04/14/17 04/14/17 07:59 15:59 23:59 Intake Total 60 ml 400 ml 120 ml Balance 60 ml 400 ml 120 ml (Issa Perez) Physical Examination GENERAL: The patient is awake and in moderately severe distress with anxiety and tearful feeling that her family has abandoned her. SKIN: Warm, dry & intact w/o any evident discolouration, rashes, ulceration or lesions. HEENT: Normocephalic, atraumatic. NECK: No JVD, trachea midline. CARDIOVASCULAR: S1S2 w/RRR w/o M/G/R, radial & pedal pulses 2+ bilaterally, cap refill < 2 sec, no pedal edema. RESPIRATORY: CTAB w/o W/R/R, equal excursion, nonlaboured, on RA. GASTROINTESTINAL: Abdomen soft, nontender, positive bowel sounds. MUSCULOSKELETAL: WILCOX w/o difficulty, slight left foot drop noted, no evident deformity or clubbing. BLE NTTP. Midline thoracolumbar spine & paraspinals NTTP. Tremors noted to BUE L>R which cease when patient is doing a task. NEUROLOGICAL: AA&Ox3. Speech clear & appropriate. Follows simple commands. Sensation intact to light touch to BLE. Motor strength 5/5 to all major flexion & extension motor groups RLE. Motor strength LLE hip flexion & knee extension 5/5, knee flexion 4/5, foot extension & inversion 3+ to 4/5. (Issa Perez) Medical Decision Making Impression and Plan Impression: 1. New inferior left L1 fracture on MRI 04/12/17 compared to previous MRI from February 2017. 2. Persistent severe low back pain. Status post L2 kyphoplasty 04/02/17. 3. Acute onset severe left foot drop 04/11/17. Improved on examination 04/13/17 compared to 04/12/17 Doubt left L5 radiculopathy based on imaging studies, symptoms and examination. Possible diabetic neuropathy versus peroneal neuropathy. Stable neurological examination, patient anxious & tearful due to feelings of abandonment. Plan: Discussed plan of care with the patient. Discussed plan of care with Case Management. Mobilise patient OOB at least BID. Continue physical therapy, conservative treatment. Pain medications for back pain. Patient discharged home w/home health. (Issa Perez) Attending Statement I have personally seen and examined the patient on the date of this note. Pertinent documentation and study results have been reviewed by the undersigned. I have personally developed the treatment plan and performed medical decision making. Agree with findings, exam, and treatment plan as noted above. The patient is sitting up in a chair, appears comfortable. No significant tenderness along the thoracolumbar midline or paraspinous musculature. She complains of some aching in her low back, but overall appears to have pain well controlled. Left lower extremity strength continues to improve, mostly 3+/5 left tibialis anterior, extensor hallucis longus, tibialis posterior, peroneus longus and brevis, with 5/5 left gastrocsoleus. Discussed with the patient. She appears stable for discharge home with home health care. Discussed with case management today She will follow up with for neurosurgery care. (Stef Scott MD) Issa Perez Apr 15, 2017 13:36 Stef Scott MD Apr 15, 2017 20:19
--- NOTE | 2017-04-15 16:13 | HHI.DS ---
Discharge Summary Admission Date Apr 12, 2017 at 19:39 Discharge Date: Apr 15, 2017 Admitting Diagnosis left foot drop, L1 compression fracture (1) Fracture of L1 vertebra Diagnosis: Secondary ICD Code: S32.019A (2) Left foot drop Diagnosis: Principal ICD Code: M21.372 Brief History 82-year-old female who was previously admitted to [facility] in early January 2017 after a fall in which she sustained a C3 fracture. This was treated conservatively. She was seen for outpatient follow-up by on and at that time complained of chronic low back pain with a history of an L1 fracture. Due to the low back complaints, an MRI of the lumbar spine was obtained which revealed an acute L1 compression fracture. She underwent a kyphoplasty on 04/02/17. She was seen back for neurosurgery follow-up on 2016 and at that time had no lower extremity neurologic deficit, although the back pain persisted. Plans at that time were to continue observation with possible referral to interventional pain management if pain persisted. The patient now presents back to the emergency room indicating that on 04/11/17 she developed a severe left foot drop. She has no pain or numbness in the left or right lower extremity. She continues to have low back pain which she states is possibly a little worse since the recent procedure. The patient is diabetic. CBC/BMP: 04/13/17 0545 04/13/17 0545 Significant Findings Laboratory Tests Test 04/13/17 05:45 Red Blood Count 3.59 MIL/MM3 (4.00-5.30) Hemoglobin 11.1 GM/DL (11.6-15.3) Hematocrit 33.3 % (35.0-46.0) Monocytes (%) (Auto) 14.3 % (0.0-8.0) Eosinophils (%) (Auto) 5.0 % (0.0-4.0) Monocytes # (Auto) 1.1 TH/MM3 (0-0.9) Creatinine 1.10 MG/DL (0.50-1.00) Estimat Glomerular Filtration 48 ML/MIN (>89) Rate Random Glucose 139 MG/DL (74-106) Hospital Course 04/12: 82-year-old female who was previously admitted to [facility] in early January 2017 after a fall in which she sustained a C3 fracture. This was treated conservatively. She was seen for outpatient follow-up by on and at that time complained of chronic low back pain with a history of an L1 fracture. Due to the low back complaints, an MRI of the lumbar spine was obtained which revealed an acute L1 compression fracture. She underwent a kyphoplasty on 04/02/17. She was seen back for neurosurgery follow-up on 2016 and at that time had no lower extremity neurologic deficit, although the back pain persisted. Plans at that time were to continue observation with possible referral to interventional pain management if pain persisted. The patient now presents back to the emergency room indicating that on 04/11/17 she developed a severe left foot drop. She has no pain or numbness in the left or right lower extremity. She continues to have low back pain which she states is possibly a little worse since the recent procedure. The patient is diabetic. 04/13/17: Remains awake and alert. Left distal lower extremity weakness improved compared to admission exam. 04/14: Patient asleep but awakens to verbal stimuli. She has no complaints when seen this morning. She has no back pain as long as she doesn't move. 04/15: The patient is awake, tearful and in moderately severe distress feeling that her family has abandoned her. She is noted to have tremors to both upper extremities, more so on the left. Pt Condition on Discharge: Good Discharge Disposition: Disch w/ Home Health Serv Discharge Instructions DIET: Follow Instructions for: Heart Healthy Diet, Diabetic Diet ACTIVITIES You can perform: Weight Bearing As Sav Activities to Avoid: Lifting/Bending, Strenuous Activity Issa Perez [facility] Apr 15, 2017 16:13
== END 2017-04-15 16:19 | disposition home health service (06) | DRG 565 ==
LOC: NEPC 11:37 → NEDA 19:39 → N06A 21:39
PROVIDERS: ADMIT Neurological Surgery; ATTEND Neurological Surgery
DX: M21.372 Foot drop, left foot (principal); M48.56XA Collapsed vertebra, not elsewhere classified, lumbar region, initial encounter for fracture; E11.9 Type 2 diabetes mellitus without complications; G89.29 Other chronic pain; M54.5 Low back pain; R25.1 Tremor, unspecified; E03.9 Hypothyroidism, unspecified; E78.5 Hyperlipidemia, unspecified; I10 Essential (primary) hypertension; Z85.3 Personal history of malignant neoplasm of breast
CPT/HCPCS: 72157; 72158; 80048; 80053; 81001; 85025; 85610; 85730; 94150; A9579